=== PATIENT | female | born 1960 | race Caucasian/White ===

== ENCOUNTER 2023-11-07 10:41 | Inpatient (IN) | payer OTHER, SELFPAY ==
[2023-11-01 09:43] VITALS: BMI 21.1
[2023-11-07] VITALS (17 sets, daily range): BP systolic 69–115; BP diastolic 34–67; PULSE 69–94; RESP 11–19; TEMP 36.1–36.7; O2SAT 92–100; BMI 21.1
[2023-11-07] MEDS: LACTATED RINGERS 1,000 ML 84 ML IV ×4 (11:41→18:35)
--- NOTE | 2023-11-07 13:00 | PM.PREOP ---
Pre-operative Note Interval Note History & Physical reviewed/Exam performed by Physician: Yes Changes to H&P: No
[2023-11-07] MEDS: CEFAZOLIN 2 GM/100 ML PREMIX 100 ML IV ×2 (13:49→20:32)
[2023-11-07] MEDS: ACETAMINOPHEN IV 1,000 MG/100 ML VIAL 400 MG IV (13:55)
--- NOTE | 2023-11-07 14:07 | SUR.OPER ---
Prone on spine table, head in foam head support, padded chest and pelvic supports, gel pad at knees, lower legs supported by pillows; nipples, genitalia and toes free of pressure, arms secured on foam padded arm boards at <90 degrees abduction. Tape over blanket at thigh secured to table.
[2023-11-07] MEDS: BUPIVACAINE 0.25% (PF) 60 ML, EPINEPHrine 0.15 MG INJ (14:11)
[2023-11-07] MEDS: BUPIVACAINE LIPOSOME 266 MG/20 ML VIAL INJ (14:12)
--- NOTE | 2023-11-07 17:29 | DI.RAD.S_ITS ---
PROCEDURE: XR LUMBAR SPINE 2-3V INDICATIONS: L4-5, L5-S1 TLIF ROWBOT TECHNIQUE: 4 intraoperative views of the lumbar spine were acquired. COMPARISON: [facility] Outside Film, CT, CT LUMBAR SPINE WITHOUT CONTRAST, 10/26/2023, 9:05. FINDINGS: L4-S1 pedicle screw fixation with intervertebral body spacers. Hardware projects in the expected location. IMPRESSION: Intraoperative guidance provided. Dictated by: Quinten Chen M.D. on 11/07/2023 at 18:27 Approved by: Quinten Chen M.D. on 11/07/2023 at 18:28
--- NOTE | 2023-11-07 17:37 | P.OP_ITS ---
Operative Date/Time/Diagnoses Date of procedure: 11/07/23 Time of procedure: 13:45 Pre-op diagnosis: 1. L4-5, L5-S1 foramen stenosis 2. L5-S1 anterolisthesis 3. Lumbar central stenosis Post-op diagnosis: same Procedure & Clinicians Procedure: 1. L4-5, L5-S1 Postero-lateral and posterior interbody fusion 2. L4-5, L5-S1 interbody cage placement. 3. L4-5, L5-S1 decompressive laminectomy with bilateral facetecomies 4. L4-5, L5-S1 Posterior segmental instrumentation 5. [place] of bone marrow from iliac crest 6. Utilization of microsurgical technique and operating microscope 7. Utilization of robotic assisted navigation Same procedure as scheduled: Yes Indications: Patient has been having chronic back pain and worsening lumbar radiculopathy, right worse than left that started after a injury while she was working. Patient's MRI shows significant foraminal stenosis with anterolisthesis at L4-5 L5-S1 correlating with her symptoms. Patient failed multiple conservative management with worsening pain weakness and numbness in her lower extremity. Patient has been having difficulty performing activity of daily living. After discussing risks benefits of treatment options, patient elected proceed with surgery. Surgeon: Ancelmo Cabrera Medicine Assistant: La Gomez Click Yes if Unassisted: No Anesthesia Type: General Operative Notes Closure Type: primary Prosthetic devices, grafts, tissues, transplants, or devices: Globus CREO MIS screws, Rise cages Applied: catheter Estimated Blood Loss (mL): 350 Blood products transfused: none Procedure in detail: Patient was seen in the preoperative area. Risks and benefits of the surgery was discussed with the patient. Informed consent was obtained from the patient and placed in the chart. Surgical site was marked. Patient was taken to the operative room. General anesthesia was administered. Prophylactic antibiotic was given to the patient less than 30 min before the incision was made. Patient was placed into a prone position on the Harsh table. Patient's back was then prepped and draped in the sterile fashion. Time-out was performed at this time. After patient was prepped and draped, patient's PSIS was palpated and marked bilaterally. Small 1 cm incision was made over the PSIS for placement of the reference probes. Two trocar was placed into the PSIS 1 on each side. The reference probe was attached to the trocar of the reference apparatus. At this time the C-arm imaging was used to confirm AP and lateral of L4-L5, L5- S1 vertebrae and merged the C-arm imaging using the rag & bone robotic navigation system with the CT of the lumbar spine. After successful merging was completed and confirmed, skin marker was used to shine out the skin incision using the rag & bone robotic arm. Bilateral incision was made at this time. Pre templated trajectory was used and guided using the rag & bone robotic navigation system for bilateral L4, L5, S1 pedicle screw placement. This was done by using the robotic arm to guide the high-speed bur to make a cortical entry point. Next a drill was placed also using the robotic arm and guided using the navigation system drilling partially through bilateral L4, L5 and S1 pedicles. Next L4, L5, S1 pedicle screws it was pre templated and measured was placed onto the power milk pickup truck driver and inserted into the pedicles bilaterally. After all 6 screws were placed C-arm imaging was taken of both AP and lateral to confirm the placement. Excellent placement of the screws were confirmed and a matched precisely with the pre planned screw placement using the navigation system. MARs retractor was inserted using ParentPlusivation guidence. Globus MARS retractors was placed inside the incision and docked onto the L4 and L5 lamina. Using microsurgical technique and operating microscope, a L4, L5 laminectomy and L4-5, L5-S1 facetectomy was performed using a Kerrison rongeur. The laminectomy and facetectomy was performed in order to decompress patient's cauda equina as well as the nerve roots exiting at the L4-5, L5-S1 level. Patient was found have severe lateral recess and neural foramen stenosis which was fully decompressed after the laminectomy facetectomy. More than 75% of the facets were removed during the process of decompression rendering L4-5, L5-S1 level grossly unstable and required a fusion procedure at the same time. The disc space at L4-5, L5-S1 was identified, and a total diskectomy was performed at L4-5, L5-S1 level. The endplates were decorticated using a rasp and shaver. The total diskectomy and decortication was performed at L4-5, L5-S1 level in order to to accomplish a L4- 5, L5-S1 fusion. The local bone from the laminectomy and facetectomy was saved for local bone grafting. After the total diskectomy and decortication was completed, Viacel bone graft material was combined with local bone that was harvested earlier. At this time, a separate skin is incision was made over the iliac crest. A Jamshidi needle was inserted into the iliac crest through a separate skin incision. 5 cc of bone marrow aspiration was obtained through the separate skin incision using a Jamshidi needle from the iliac crest. The bone marrow aspiration was combined with local bone and the Viacel bone grafting material. The bone grafting material was placed into the L4-5, L5-S1 interbody space along with a expandable cage. The cage was expanded to its maximum height using the torque limiting screwdriver. The disc preparation as well as the cage insertion were also performed under navigation guidance. After the cage was placed, AP and lateral C-arm imaging was taken to confirm placement of the cage and excellent position was confirmed. Globus MARS retractor was inserted and docked onto the L4-5, L5-S1 posterolateral gutter on the right side. Using the power drill, posterior- lateral decortication was performed at L4-5, L5-S1 level until bleeding cortical bone was identified. The remaining bone grafting material was placed into the L4-5, L5-S1 posterior lateral gutter he order to accomplish posterolateral fusion at the L4-5, L5-S1 level. At this time the tulips were attached to the L4, L5, S1 pedicle screw shanks. After measuring the length of the rods, they were inserted into the tulips of the pedicle screws and locked in place using locking caps and torque limiting screwdriver bilaterally. Total 6 caps and 2 titanium rods was used in order to complete the posterior instrumentation construct. After all the hardware was placed, and confirmed with AP and lateral C-arm imaging, the wound was then irrigated with sterile normal saline and packed with Ray-Jacque gauze for 3 min to accomplish hemostasis. After the gauze was removed the deep fascia was closed with #1 Vicryl suture. The subcutaneous layer was closed with 2-0 Vicryl. The skin was closed with skin adán. Patient tolerated the procedure well. There were no complications. Neuro monitoring system was used to monitor patient's neurologic status throughout entire procedure. There was no disturbance of the neural monitoring signals throughout the case. The Operation could not have been safely performed without compromising the technical result or length of the procedure, without the assistance of a skilled regional vice president surgical sales. The regional vice president surgical sales was medically necessary for proper positioning, retraction and manipulation of instruments, proper exposure, surgical preparation, and manipulation of tissue. Complications: none Post-operative Plan for aftercare: Admit to inpatient hospital
--- NOTE | 2023-11-07 18:08 | SUR.PHASEI ---
Dr Garcia at bedside. 500ml bolus for BP
[2023-11-07] MEDS: HYDROMORPHONE 1 MG INJ IV ×2 (18:16→18:22)
[2023-11-07] MEDS: hydrOXYzine 50 MG/ML INJ IM (18:28)
--- NOTE | 2023-11-07 18:35 | SUR.PHASEI ---
DR Garcia at bedside. Approx 30cc urine output. BP 86/40. Will give 500ml LR. Pt now awake, alert, oriented.
[2023-11-07] MEDS: OXYCODONE IR 5 MG TABLET PO ×2 (18:40→19:08)
[2023-11-07] MEDS: ALBUMIN HUMAN 12.5 GM/50 ML VIAL IV (18:51)
--- NOTE | 2023-11-07 19:38 | SUR.PHASEI ---
Pt transferred to room 215 in bed by this RN. SBAR report and bedside handoff to Nancy RODRIGUEZ. Pt belongings bag with in room. Urine clearing up.
[2023-11-07] MEDS: SENNOSIDES 8.6 MG TABLET 17.2 MG PO (20:31)
[2023-11-07] MEDS: DOCUSATE 100 MG CAPSULE PO (20:31)
[2023-11-07] MEDS: ACETAMINOPHEN 325 MG TABLET 650 MG PO (20:31)
[2023-11-07] MEDS: OXYCODONE IR 10 MG TABLET PO (20:31)
[2023-11-07] MEDS: GABAPENTIN 100 MG CAPSULE PO (20:31)
[2023-11-07] MEDS: LACTATED RINGERS 1,000 ML 125 ML IV (23:26)
[2023-11-08] MEDS: CEFAZOLIN 2 GM/100 ML PREMIX 100 ML IV (02:48)
[2023-11-08] MEDS: OXYCODONE IR 10 MG TABLET PO ×2 (05:22→07:55)
[2023-11-08 05:50] VITALS: BP 93/49; PULSE 70; RESP 19; TEMP 36.6; O2SAT 95
[2023-11-08 05:59] LABS: Hematocrit 26.6 % (36-46)
--- NOTE | 2023-11-08 07:13 | PM.PNPO.1 ---
Subjective Subjective Date Patient Seen: 11/08/23 Time Patient Seen: 07:18 Interval history: Pt lying in bed w/ spouse at bedside. C/o back pain, denies leg pain. No h/o prescription pain medication use prior to surgery, tolerating oxycodone without difficulty. Has not been OOB yet. Exam Vital Signs (past 8 hours): - 11/07/23 23:30 11/08/23 05:50 Temperature 97.8 F 97.9 F Pulse Rate 78 70 Respiratory Rate 19 19 Blood Pressure 109/46 L 93/49 L Pulse Oximetry 95 95 Oxygen Flow Rate 0 0 Oxygen Delivery Method Room Air Oxygen Flow Rate 0 Narrative Exam Narrative: 4/5 strength in hip flexors, quadriceps, hamstrings; 5/5 DF, PF, EHL. Sensation to light touch intact in BLE, calves soft and compressible. Objective Labs 11/08/23 05:20 Labs: Laboratory Results - last 24 hr 11/08/23 05:20 Hgb 9.0 L Hct 26.6 L PFSH Medical History (Updated 11/08/23 @ 07:23 by La Gomez PA-C) Anxiety Heart murmur Preglaucoma of left eye Sciatica Scoliosis Spondylolisthesis of lumbar region Spinal stenosis, lumbar region, with neurogenic claudication Surgical History (Updated 11/08/23 @ 07:14 by La Gomez PA-C) Hx of breast surgery (2009) Hx of tubal ligation (09/1987) H/O: hysterectomy (2010) Social History household members: spouse Smoking Status: Never smoker alcohol intake: current Assessment & Plan Post-op Assessment and plan (1) S/P lumbar fusion: Assessment and Plan narrative: SCDs for VTE prophylaxis; these should be on and functioning whenever pt is in bed. Remove villarreal catheter today. Work w/ PT today in anticipation of d/c home w/ spouse tomorrow. (2) Acute postoperative anemia due to expected blood loss: Assessment and Plan narrative: Preop H/H 13.5/40.9. BP low, HR normal. Pt currently asymptomatic, but has not been OOB yet. No indication for transfusion at this time, but will continue to monitor VSS and U/O, recheck H/H tomorrow to ensure it has stabilized. (3) Hypotension after procedure: Assessment and Plan narrative: Likely d/t procedural blood loss. In review of pts office notes, her BP is typically 120s/60-70s. She is still positive > 4L since surgery, so fluid bolus is not indicated at this time. Will continue monitor. Postoperative Procedures: Procedures Operation Date: 11/07/23 12:15 Actual Procedure Side Surgeon p L4-5, L5-S1 TLIF with posterior instrumentation- robot Ancelmo Cabrera MD Postoperative day: 1 Quality VTE Deep Vein Thrombosis/Pulmonary Embolism Present on Admission: No
[2023-11-08] MEDS: ACETAMINOPHEN 325 MG TABLET 650 MG PO ×2 (07:54→19:36)
[2023-11-08 08:38] VITALS: BP 94/43; PULSE 73; RESP 16; TEMP 36.5; O2SAT 96
--- NOTE | 2023-11-08 09:20 | PT.IIE ---
Current Diagnoses Acute posthemorrhagic anemia (11/07/23) Postprocedural hypotension (11/07/23) Spondylolisthesis, lumbar region (11/07/23) Spinal stenosis, lumbar region with neurogenic claudication (11/07/23) Arthrodesis status (11/07/23) Surgery Performed Operation Date: 11/07/23 12:15 Actual Procedures p L4-5, L5-S1 TLIF with posterior instrumentation- robot - Ancelmo Cabrera MD Surgical History (Last Updated 11/01/23 @ 10:11 by Radha Brown RN) H/O: hysterectomy (2010) Hx of breast surgery (2009) Hx of tubal ligation (09/1987) Medical History (Last Updated 11/01/23 @ 10:11 by Radha Brown RN) Anxiety Heart murmur Preglaucoma of left eye Sciatica Scoliosis Spinal stenosis, lumbar region, with neurogenic claudication Spondylolisthesis of lumbar region Physical Therapy Inpatient Evaluation/Re-Eval M1 PT/OT-IP Prior Functional Status Start: 11/08/23 10:16 Freq: NEEDED Status: Active Protocol: Document 11/08/23 09:20 AB (Rec: 11/08/23 10:25 AB [id number]) Medical Review Prior Functional Status Medical History Reviewed Yes Communication able to make needs known Mobility and Gait pt stated that she was independent with all mobilities and ambulation without AD Social History Household Members spouse Living Arrangements Mobile home Number of Stairs To Enter/Railing? 4 steps L rail ascending Home Environment Standard Height Toilet,Tub/ Shower Home Equipment Front Wheel Walker Additional Social History Comment pt has an adjustable bed M2 PT-IP Current Condition Start: 11/08/23 10:16 Freq: NEEDED Status: Active Protocol: Document 11/08/23 09:20 AB (Rec: 11/08/23 10:25 AB [id number]) Physical Therapy Current Condition Current Condition Evaluation Date 11/08/23 Treatment Diagnosis s/p L4-5, L5S1 TLIF; difficulty in walking Onset Date 11/07/23 M3 PT-IP Subjective Start: 11/08/23 10:16 Freq: NEEDED Status: Active Protocol: Document 11/08/23 09:20 AB (Rec: 11/08/23 10:25 AB [id number]) Subjective Physical Therapy Visit Type Type Initial Evaluation Visit Start Time 09:20 Visit Stop Time 10:00 Number of BOARD CERTIFIED ORTHODONTIST Visits 40 Physical Therapy Visit Comments Patient Comments agreeable to do PT Therapy Pain Assessment Pain When Pain Assessed At Rest Pain Present Pain Present Pain Reported Location Lower Back Intensity 5 Scale Used Numeric (0 - 10) Pain Management Techniques Distraction,Modification of Treatment,Re-positioning, Timing of Activity with Medications M4 PT-IP Mobility and Gait Start: 11/08/23 10:16 Freq: NEEDED Status: Active Protocol: Document 11/08/23 09:20 AB (Rec: 11/08/23 10:25 AB [id number]) PT-Bed Mobility Assessment Rolling Type of Rolling Log Rolling Level of Assist Maximal Assistance Supine to Sit Supine to Sit Maximum Assistance,1 Person Assistance Sit to Supine Sit to Supine Moderate Assistance,1 Person Assistance PT-Transfer Assessment Comments Mobility Comments pt supine in bed and spouse in room. obtained PLOF and home set up from pt. post-op folder provided and reviewed contents. educated pt and spouse regarding back precautions and log roll bed mobility. BP in supine: 98/42. pt completed log roll supine to sit max A and max cues. pt able to sit on EOB SBA. c/o dizziness. BP in sittin/ 35. informed nurse. pt stated that dizziness is stable. checked BP again after ~ 2 min : 79/27. Assisted pt back to bed. completed sit to supine mod A and max cues. BP: 85/36 . positioned pt in bed in slight trendelenburg position. pt stated that she feels better. BP: 95/41. reposition pt supine in bed. call light and table placed within reach . nurse aware of pt's BP. PT-Balance Assessment Sitting Balance and Reactions Static Sitting Balance Ability Good Dynamic Sitting Balance Ability Fair M5 PT-IP Objective Assessments Start: 11/08/23 10:16 Freq: NEEDED Status: Active Protocol: Document 11/08/23 09:20 AB (Rec: 11/08/23 10:25 AB [id number]) Orientation Orientation/Cognition Level of Alertness Alert Orientation Name,Place,Situation Language Function Ability No Deficits Noted Safety Awareness Decreased Safety Awareness Memory Description No Deficits Noted Gross Range of Motion Lower Extremity ROM Assessment Within Functional Limits Strength Lower Extremity Strength Hip 4-/5 Knee 4-/5 Sensation Assessment Sensation Gross Sensation WNL Muscle Tone Muscle Tone WNL Yes M6 PT-IP Treatment Start: 11/08/23 10:16 Freq: NEEDED Status: Active Protocol: Document 11/08/23 09:20 AB (Rec: 11/08/23 10:25 AB [id number]) Physical Therapy Treatment Education Education Provided Precautions,Weight Bearing Status,Post-Op Packet,Safety M7 PT-IP Assessment and Plan Start: 11/08/23 10:16 Freq: NEEDED Status: Active Protocol: Document 11/08/23 09:20 AB (Rec: 11/08/23 10:25 AB [id number]) PT Summary Assessment and Plan Potential Rehabilitation Potential Fair Status of Condition at Evaluation Unstable Summary Impairments Pain,ROM,Strength,Balance, Coordination,Sensation,Tone, Cognition,Bed Mobility, Transfers,Gait,Activity Tolerance Assessment Summary pt is a 62y/o F s/p L4-5,L5S1 TLIF POD 1. pt unable to tolerate much activity this morning with decrease in BP in sitting to 79/27 limiting mobility. pt requiring mod to max A with bed mobility and unable to transfer or ambulate this morning due to decrease in BP. will continue to assess progress. pt plans to go home with spouse to assist her and will conduct caregiver training when appropriate as well as stair climbing training. Goals Bed Mobility Goal Independent Transfer Goal Independent,Front Wheeled Walker Gait Goal Independent,Front Wheel Walker Gait Distance 300 Other Goals up/down 4 steps L rail ascending SBA Days to Meet Goals 10 Frequency of Treatment Frequency Of Treatment Twice a Day Treatment Plan Physical Therapy Treatment Plan Bed Mobility Training,Transfer Training,Gait Training, Therapeutic Exercise,Balance Retraining,Post Op Education, Discharge Planning,Hot or Cold Pack,Neuromuscular Re-ed, Coordination Retraining,Manual Therapy Precautions Lumbar Precautions Log Roll,No Twisting,Limit Bending,Lifting Restriction of 10 lbs,Gait Belt above Incisional Area Recommendations To Nursing Amount of Assist Needed PT/OT Assist Only Discharge Recommendations PT Discharge Recommendations Home with 24/01 Assist Available Transportation Needs at Discharge Private Vehicle,Wheelchair/ Cabulance
[2023-11-08] MEDS: DOCUSATE 100 MG CAPSULE PO ×2 (09:45→20:07)
[2023-11-08] MEDS: OXYCODONE IR 5 MG TABLET PO ×2 (12:58→19:37)
--- NOTE | 2023-11-08 13:03 | PC.NURSE ---
Patient is A&OX4, VSS, afebrile on RA. IVF saline locked this a.m. and patient taking adequate po this a.m. Tolerated breakfast well. PT at bedside working with patient who states she typically has baseline low blood pressure. Upon sitting she is orthostatic 80's/30's and then upon recheck 79/27. She is dizzy at this time HR WNL. She is assisted back to lying down and BP returns to 95/41. MD notified and received orders to monitor, and offer oxycodone 5mg q 3 hr prn instead of 10 mg. Raymond catheter dc'd at 0745 and patient voided at 1300. Continuous monitoring.
--- NOTE | 2023-11-08 13:04 | CM.DANOTE ---
Initial DCP Assessment Visit Note Reviewed EMR and team rounds for pt's medical status and anticipated home d/c needs. Met with pt/spouse at bedside to introduce self and role, pt was found to be resting in bed, somnolent, yet able to express her needs and answer questions congruently. Her RN states that pt is struggling still with recovering from the anesthesia, and has had low blood pressure today, even at rest. Pt will likely d/c home tomorrow w/spouse, if blood pressure stabilizes. Payor: L&I Attending: Dr. Cabrera Pt is a 62 year-old F post-op day 1 from a lumbar fusion surgery. Pt has a PMH of worsening lumbar pain and r-sided pain/weakness that radiates down the leg. This is directly related to an accident that she had while working, when she fell of a ladder onto her r-side on 12/17/21. She has not had lasting relief from conservative treatments such as PT, massage, exercise modification, and anti-inflammatory medications. DCP will continue to follow and assist with any evolving d/c needs/resources. Pt does have a f/u appt. scheduled with Ortho for wound check, and will discuss at that time continued therapy recommendations. Discharge Planning/Care Management CM Discharge Assessment Start: 11/08/23 12:57 Freq: Status: Active Protocol: Document 11/08/23 12:57 DPL (Rec: 11/08/23 13:03 DPL [id number]) Discharge Planning Assessment Assigned Photography Spotter TOMMY Islas Advance Directives? No History Provided By Patient,Significant Other, Medical Record Prior Living Arrangements Mobile home Household Members spouse Type of transporation used prior to Drives own vehicle admit Independent with ADL's Yes Is patient alert and oriented? Yes Community Services used prior to Physical Therapy admission: DME Already Rented / Owned Elevated Toilet Seat,FWW / Walker Patient/Family Preference OP PT Therapy Barriers to Discharge No Discharge Plan Home Referrals Initiated None needed Whiteboard Updated in Patient Room with Yes name and ext. # of Photography Spotter Review Status In Process Please Provide Date Initial DC 11/08/23 Assessment Was Performed Pre-Anesthesia Assessment Start: 11/01/23 09:43 Freq: Status: Active Protocol: Document 11/01/23 09:43 CAB (Rec: 11/01/23 10:25 CAB [id number]) Pre-Anesthesia Assessment Patient Information Reviewed Via Phone Assessment Assessment Completed With Patient Diagnostic Results BMP/CMP,CBC Comment Outside labs scanned. EKG done per pt, not available time of phone assess Primary Care Provider Jessica Seen Specialist in Last 12 Months Yes Specialist Seen Orthopedist Primary Language Yakut Dog Breeder Required No Height 170.18 cm Weight 61.235 kg Body Mass Index (BMI) 21.1 Hearing Ability Normal Visual Assist Glasses Dentition Type Teeth, Natural Present Barriers to Learning None Hx Anesthesia Reactions No Hx Family Anesthesia Reaction Yes: Mom-PONV Hx Malignant Hyperthermia No Hx Blood Transfusions No Anesthesia Review Requested No Beam Builder Helper No alcohol intake current alcohol intake frequency holidays/special occasions only Smoking Status Never smoker Substance Use Type does not use Pain Present Pain Reported Musculoskeletal Symptoms Abnormal Gait,Back Pain, Difficulty Walking,Muscle Weakness,Radiating Pain into Limb History of Falling (Recent or History of Yes ) Comment Fell off ladder at work 2021 Patient is completely paralyzed or No completely immobile Mental Status Oriented to own ability Is patient on oxygen? No Does patient have PEREZ/SOB No Hx Sleep Apnea No Currently Taking a Beta Sher No Can You Climb a Flight of Stairs Without Yes SOB Hx Chest Pain No Hx SOB No Hx Syncope or Dizziness No Anti-Coagulant Therapy No Has a Toll Line Mechanic No Cardiac Testing No Hx Pacemaker/ICD No Pacemaker Rep Required? No Cardiac Clearance Received No Diet Type At Home Regular Dysphagia No Gastrointestinal Symptoms None Urinary Catheter Present No Hx Urinary Self Catheterization No Diabetes No HgbA1C 5.2 Date 10/13/23 Patient No Lactating No Hx Drug Resistant Organism No Presence of External or Internal Medical No Devices Received a COVID vaccine? Yes Received all doses? Yes Marital Status Lives With spouse Current Living Arrangements Mobile home Support System Spouse Does the Patient Have Assistance After Yes Surgery Patient Discharge Plan Description Return Home Comment Pt advised 2 day length of stay per surgeon Feels Safe in Current Environment Yes Been Physically Hurt or Threatened By a No Person in Current Environment Do you have thoughts of harming yourself None or others? Are you currently considering suicide? No Do you have a plan to hurt yourself or No Plan others? Do You Have Any Spiritual Beliefs That No May Affect Your HC Choices? Do You Have Any Cultural Practices That No May Affect Your HC Choices? Who Can We Speak to About Patient's Care Family, friends Identifying Code for Release of Patient Declines to issue Information Health Care Proxy/Next of Kin Abhishek () Health Care Proxy Emergency Contact Name Abhishek () Emergency Contact Advance Directives? No Power of Die Sinker Apprentice Yes Power of Die Sinker Apprentice Name Abhishek () Power of Die Sinker Apprentice PAC Instructions Durable medical equipment, Medications to take/avoid, Nasal antibiotic,No ETOH/ petroleum product on skin DOS, NPO,Pre-surgical wash,Sturdy shoes/comfortable clothes,Do not bring valuables and remove jewelry
--- NOTE | 2023-11-08 14:14 | PT.IPTN ---
Current Diagnoses Acute posthemorrhagic anemia (11/07/23) Postprocedural hypotension (11/07/23) Spondylolisthesis, lumbar region (11/07/23) Spinal stenosis, lumbar region with neurogenic claudication (11/07/23) Arthrodesis status (11/07/23) Surgery Performed Operation Date: 11/07/23 12:15 Actual Procedures p L4-5, L5-S1 TLIF with posterior instrumentation- robot - Ancelmo Cabrera MD Physical Therapy Treatment Note M2 PT-IP Current Condition Start: 11/08/23 10:16 Freq: NEEDED Status: Active Protocol: Document 11/08/23 09:20 AB (Rec: 11/08/23 10:25 AB [id number]) Physical Therapy Current Condition Current Condition Evaluation Date 11/08/23 Treatment Diagnosis s/p L4-5, L5S1 TLIF; difficulty in walking Onset Date 11/07/23 M3 PT-IP Subjective Start: 11/08/23 10:16 Freq: NEEDED Status: Active Protocol: Document 11/08/23 14:14 AB (Rec: 11/08/23 16:00 AB [id number]) Subjective Physical Therapy Visit Type Type Treatment Note Visit Start Time 14:14 Visit Stop Time 14:36 Number of INLETTER Visits 0 Physical Therapy Visit Comments Patient Comments agreeable to do PT Therapy Pain Assessment Pain When Pain Assessed At Rest Pain Present Pain Present Pain Reported Location Lower Back Intensity 6 Scale Used Numeric (0 - 10) Pain Management Techniques Distraction,Modification of Treatment,Re-positioning, Timing of Activity with Medications M4 PT-IP Mobility and Gait Start: 11/08/23 10:16 Freq: NEEDED Status: Active Protocol: Document 11/08/23 14:14 AB (Rec: 11/08/23 16:00 AB [id number]) PT-Bed Mobility Assessment Rolling Type of Rolling Log Rolling Level of Assist Maximal Assistance Supine to Sit Supine to Sit Moderate Assistance,1 Person Assistance Sit to Supine Sit to Supine Minimal Assistance,1 Person Assistance PT-Transfer Assessment Comments Mobility Comments pt supine in bed and requesting to use the toilet. pt agreeable to do PT. BP in supine: 104/46. pt completed log roll supine to sit mod to max A and max cues. able to sit on EOB SBA. initial BP in sittin/48. pt with c/o dizziness. pt able to sit for ~ 2 min and BP checked: 85 /57. assisted pt to supine log roll min A for LE elevation and max cues provided. positioned pt in bed . call light and table placed within reach. M5 PT-IP Objective Assessments Start: 11/08/23 10:16 Freq: NEEDED Status: Active Protocol: Document 11/08/23 09:20 AB (Rec: 11/08/23 10:25 AB [id number]) Orientation Orientation/Cognition Level of Alertness Alert Orientation Name,Place,Situation Language Function Ability No Deficits Noted Safety Awareness Decreased Safety Awareness Memory Description No Deficits Noted Gross Range of Motion Lower Extremity ROM Assessment Within Functional Limits Strength Lower Extremity Strength Hip 4-/5 Knee 4-/5 Sensation Assessment Sensation Gross Sensation WNL Muscle Tone Muscle Tone WNL Yes M6 PT-IP Treatment Start: 11/08/23 10:16 Freq: NEEDED Status: Active Protocol: Document 11/08/23 14:14 AB (Rec: 11/08/23 16:00 AB [id number]) Physical Therapy Treatment Education Education Provided Precautions,Safety M7 PT-IP Assessment and Plan Start: 11/08/23 10:16 Freq: NEEDED Status: Active Protocol: Document 11/08/23 14:14 AB (Rec: 11/08/23 16:00 AB [id number]) PT Summary Assessment and Plan Potential Rehabilitation Potential Fair Summary Impairments Pain,ROM,Strength,Balance, Coordination,Sensation,Tone, Cognition,Bed Mobility, Transfers,Gait,Activity Tolerance Progress Towards Goals Slow Progress due to Pain,Slow Progress due to Medical Issues,Slow Progress due to Activity Tolerance,Slow Progress - Other Assessment Summary pt continues to have orthostatic hypotension with BP at 89/39 in sitting . pt unable to tolerate much activity due to orthostatic hypotension. will continue to assess progress. Goals Bed Mobility Goal Independent Transfer Goal Independent,Front Wheeled Walker Gait Goal Independent,Front Wheel Walker Gait Distance 300 Other Goals up/down 4 steps L rail ascending SBA Days to Meet Goals 10 Frequency of Treatment Frequency Of Treatment Twice a Day Treatment Plan Physical Therapy Treatment Plan Bed Mobility Training,Transfer Training,Gait Training, Therapeutic Exercise,Balance Retraining,Post Op Education, Discharge Planning,Hot or Cold Pack,Neuromuscular Re-ed, Coordination Retraining,Manual Therapy Precautions Lumbar Precautions Log Roll,No Twisting,Limit Bending,Lifting Restriction of 10 lbs,Gait Belt above Incisional Area Recommendations To Nursing Amount of Assist Needed PT/OT Assist Only Discharge Recommendations PT Discharge Recommendations Home with 24/7 Assist Available Transportation Needs at Discharge Private Vehicle,Wheelchair/ Cabulance
--- NOTE | 2023-11-08 14:36 | OT.IP.EVAL ---
Current Diagnoses Acute posthemorrhagic anemia (11/07/23) Postprocedural hypotension (11/07/23) Spondylolisthesis, lumbar region (11/07/23) Spinal stenosis, lumbar region with neurogenic claudication (11/07/23) Arthrodesis status (11/07/23) Surgery Performed Operation Date: 11/07/23 12:15 Actual Procedures p L4-5, L5-S1 TLIF with posterior instrumentation- robot - Ancelmo Cabrera MD Past Medical History (Last Updated 11/01/23 @ 10:11 by Radha Brown RN) Anxiety Heart murmur Preglaucoma of left eye Sciatica Scoliosis Spinal stenosis, lumbar region, with neurogenic claudication Spondylolisthesis of lumbar region Surgical History (Last Updated 11/01/23 @ 10:11 by Radha Brown RN) H/O: hysterectomy (2010) Hx of breast surgery (2009) Hx of tubal ligation (09/1987) Occupational Therapy Inpatient Evaluation/Re-Eval M1 PT/OT-IP Prior Functional Status Start: 11/08/23 14:47 Freq: NEEDED Status: Active Protocol: Document 11/08/23 14:47 [facility] (Rec: 11/08/23 14:59 [facility] [id number]) Medical Review Prior Functional Status Medical History Reviewed Yes Communication able to make needs known Mobility and Gait pt stated that she was independent with all mobilities and ambulation without AD Activities of Daily Living and IADL's Pt states able to do ADL needs but unable to do IADL needs due to her pain. Social History Household Members spouse Living Arrangements Mobile home Number of Stairs To Enter/Railing? 4 steps L rail ascending Home Environment Standard Height Toilet,Tub/ Shower Home Equipment Front Wheel Walker Additional Social History Comment pt has an adjustable bed Pt states has a step on the truck in order to get in. M2 OT-IP Current Condition Start: 11/08/23 14:47 Freq: Status: Active Protocol: Document 11/08/23 14:47 [facility] (Rec: 11/08/23 14:59 [facility] [id number]) Occupational Therapy Current Condition Current Condition Evaluation Date 11/08/23 Treatment Diagnosis S/P L4-5, L5-S1 TLIF Diagnosis Onset Date 11/07/23 Post Operative Precautions Lumbar Precautions Log Roll,No Twisting,Limit Bending,Lifting Restriction of 10 lbs,Gait Belt above Incisional Area M3 OT- IP Subjective and Pain Start: 11/08/23 14:47 Freq: Status: Active Protocol: Document 11/08/23 14:47 [facility] (Rec: 11/08/23 14:59 [facility] [id number]) OT- Subjective Occupational Therapy Visit Type Type Initial Evaluation Visit Start Time 14:11 Visit Stop Time 14:36 Occupational Therapy Visit Comments Patient Comments Pt agreed to get up. Patient/Caregiver Goals To go home. OT Pain Assessment Pain When Pain Assessed During Mobility Pain Present Pain Present Pain Reported Location Lower Back Intensity 8 Scale Used Numeric (0 - 10) M4 OT- IP ADL's Start: 11/08/23 14:47 Freq: Status: Active Protocol: Document 11/08/23 14:47 [facility] (Rec: 11/08/23 14:59 [facility] [id number]) OT [id number] General Evaluation Self-Feeding Ability Independent OT ADL-Grooming Comments OT Grooming Comments Pt states did earlier. OT ADL-Oral Care Comments Oral Care Comments Educated best to spit into a cup or hinge at her hips when during oral care need at sink. OT ADL-Dressing General Eval Lower Body Dressing Ability Maximum Assistance Comments OT Dressing Comments Initiated education of LB dressing equipment. OT ADL-Toileting Comments OT Toileting Comments Use of bed mathur at this time due to low BP. Suggested to get a BSC for home use. Suggested use of pads at night if needed so not having to galvez to the bathroom. OT ADL-Bathing Comments OT Bathing Comments Suggested to get a shower chair for home use. M5 OT- IP IADL's Start: 11/08/23 14:47 Freq: Status: Active Protocol: Document 11/08/23 14:47 [facility] (Rec: 11/08/23 14:59 [facility] [id number]) OT-Instrumental Activities of Daily Living Deficits IADL Deficits Identified Deficits Home Safety Awareness Awareness of Need for Assistance at Home Good Awareness Ability to Problem Solve Emergency Able to Problem Solve Situations Meal Preparation Meal Preparation Caregiver Provides Assist Core Winding Operator Core Winding Operator Caregiver Provides Assist M6 OT- IP Functional Cognition Start: 11/08/23 14:47 Freq: Status: Active Protocol: Document 11/08/23 14:47 [facility] (Rec: 11/08/23 14:59 [facility] [id number]) Cognitive Factors Limiting Selfcare Function Cognitive Ability Level of Alertness Alert Patient Orientation Name,Age,Birthday,Month,Date, Year,Day of Week,Place, Situation Attention Span Ability Capable of Focused Attention, Capable of Sustained Attention Ability to Follow Commands Able to Follow One Step Commands Memory Description No Deficits Noted Safety Awareness Decreased Ability to Apply Precautions Cognitive Comments Cognitive Assessment Comments Pt needing initial education for back precautions as per pt was too groggy this morning to recall. Pt still needing cues for safety and hand placement for log rolling needs. OT- Vision and Hearing OT- Hearing Assessment OT- Hearing Assessment WFL OT- Vision Assessment Visual Acuity Glasses For Reading M7 OT- IP Mobility and Balance Start: 11/08/23 14:47 Freq: Status: Active Protocol: Document 11/08/23 14:47 [facility] (Rec: 11/08/23 14:59 [facility] [id number]) OT- Bed Mobility Assessment Supine to Sit Supine to Sit Assist Minimal Assistance Sit to Supine Sit to Supine Assist Minimal Assistance Scooting Scooting to Edge of Bed Standby Assistance OT-Transfer Assessment Comments Mobility Comments BP supine 97/36, sitting 105/ 48 and 89/36 and complaining of being dizzy, 95/38 in supine- nursing notified. OT- Balance Assessment Sitting Balance and Reactions Static Sitting Balance Ability Good M8 OT- IP Objective Assessments Start: 11/08/23 14:47 Freq: Status: Active Protocol: Document 11/08/23 14:47 [facility] (Rec: 11/08/23 14:59 [facility] [id number]) OT Gross Range of Motion Upper Extremity Range of Motion Assessment Within Functional Limits M9 OT- IP Assessment and Plan Start: 11/08/23 14:47 Freq: Status: Active Protocol: Document 11/08/23 14:47 [facility] (Rec: 11/08/23 14:59 [facility] [id number]) OT Summary Assessment and Plan Potential Rehabilitation Potential Excellent Analytic Complexity at Evaluation Low Summary OT Impairments Pain,Balance,Functional Mobility,Dressing,Toileting, Bathing,Toilet Transfers, Shower Transfers Progress Towards Goals Slow Progress due to Pain,Slow Progress due to Medical Issues Assessment Summary Pt low complexity and main barriers are steps, having hypotension and not able to try standing at this time. Pt has a supportive to assist with her needs. Pt to go home with assist when medically stable. Goals Grooming Goal Independent Dressing Goal Minimal Assistance Toileting Goal Independent Bathing Goal Standby Assistance Toilet Transfer Goal Independent Shower Transfer Goal Independent Patient/Caregiver Education Goal Demonstrate Post-Op Precautions,Caregiver Independent Assisting Patient Days to Meet Goals 10 Frequency of Treatment Frequency Of Treatment Once a Day Treatment Plan OT Treatment Plan ADL Training,Functional Mobility,Patient/Family Education,Discharge Planning Other Treatment Recommendations and Next LB dressing equipment, Treatment Focus satnding ADL's pending BP Discharge Recommendations OT Discharge Recommendations Home with 24/7 Assist Available Home Equipment Needs BSC, shower chair Transportation Needs at Discharge Private Vehicle
[2023-11-08 15:10] VITALS: BP 95/41; PULSE 84; RESP 16; TEMP 36.6; O2SAT 98
[2023-11-08] MEDS: SODIUM CHLORIDE 0.9% 500 ML 1000 ML IV (15:13)
[2023-11-08 17:25] VITALS: BP 107/40
[2023-11-08] MEDS: SENNOSIDES 8.6 MG TABLET 17.2 MG PO (20:07)
[2023-11-08] MEDS: GABAPENTIN 100 MG CAPSULE PO (20:08)
[2023-11-08] MEDS: BIMATOPROST 1 EACH EYE-LEFT (20:09)
[2023-11-08 20:51] VITALS: BP 118/45; PULSE 83; RESP 16; TEMP 37.7; O2SAT 96
[2023-11-09] VITALS (7 sets, daily range): BP systolic 93–107; BP diastolic 36–46; PULSE 76–90; RESP 16–19; TEMP 36.6–37.2; O2SAT 95–100
[2023-11-09] MEDS: ACETAMINOPHEN 325 MG TABLET 650 MG PO ×3 (02:06→17:18)
[2023-11-09] MEDS: OXYCODONE IR 5 MG TABLET PO ×4 (02:06→17:18)
[2023-11-09 06:14] LABS: Hemoglobin 9.3 g/dL (12.0-16.0)
--- NOTE | 2023-11-09 07:16 | PM.DS.1 ---
History of Present Illness History of Present Illness Date Patient Seen: 11/09/23 Time Patient Seen: 07:16 Chief complaint: Translam Intrbody Fus./Laminotomy -Robot Narrative: Operative Date/Time/Diagnoses Date of procedure: 11/07/23 Time of procedure: 13:45 Pre-op diagnosis: 1. L4-5, L5-S1 foramen stenosis 2. L5-S1 anterolisthesis 3. Lumbar central stenosis Post-op diagnosis: same Procedure & Clinicians Procedure: 1. L4-5, L5-S1 Postero-lateral and posterior interbody fusion 2. L4-5, L5-S1 interbody cage placement. 3. L4-5, L5-S1 decompressive laminectomy with bilateral facetecomies 4. L4-5, L5-S1 Posterior segmental instrumentation 5. [place] of bone marrow from iliac crest 6. Utilization of microsurgical technique and operating microscope 7. Utilization of robotic assisted navigation Same procedure as scheduled: Yes Indications: Patient has been having chronic back pain and worsening lumbar radiculopathy, right worse than left that started after a injury while she was working. Patient's MRI shows significant foraminal stenosis with anterolisthesis at L4-5 L5-S1 correlating with her symptoms. Patient failed multiple conservative management with worsening pain weakness and numbness in her lower extremity. Patient has been having difficulty performing activity of daily living. After discussing risks benefits of treatment options, patient elected proceed with surgery. Surgeon: Ancelmo Cabrera Rotary Bar Operator: La Gomez Click Yes if Unassisted: No Anesthesia Type: General Operative Notes Closure Type: primary Prosthetic devices, grafts, tissues, transplants, or devices: Globus CREO MIS screws, Rise cages Applied: catheter Estimated Blood Loss (mL): 350 Blood products transfused: none Discharge Providers Provider Date of admission: 11/07/23 10:41 Discharge Date: 11/09/23 Consults: 11/07/23 19:23 Consult to Occupational Therapy Evaluate & Treat Comment: Physician Instructions: Evaluate and treat Consult to Physical Therapy Evaluate & Treat Comment: Physician Instructions: Evaluate and Treat Discharge provider: La Gomez PA-C Summary Hospital Course Discharge Diagnosis: L4-5, L5-S1 foramen stenosis, L5-S1 anterolisthesis, Lumbar central stenosis; s/p L4-5, L5-S1 fusion Hospital Course: Ms Pang's hospital course was remarkable for postoperative anemia and hypotension. On the morning of POD# 2, her blood pressure had returned to preop levels and she remained asymptomatic. Her H/H had improved. She was feeling well and wanted to go home. She was eating and voiding without difficulty and her pain was well-controlled with oral medication. She c/o back pain, denied leg symptoms. Exam Vital Signs (past 8 hours): - 11/09/23 01:21 11/09/23 06:33 Temperature 98.7 F 98 F Pulse Rate 90 Respiratory Rate 19 Blood Pressure 100/42 L Pulse Oximetry 95 Oxygen Flow Rate 0 Oxygen Delivery Method Room Air Oxygen Flow Rate 0 Narrative Exam Narrative: 5/5 strength in hip flexors, quadriceps, hamstrings, DF, PF, EHL bilaterally. Sensation to light touch intact in BLE. Calves soft, compressible, nontender. Low back dressing placed intraoperatively is CDI. Objective Labs 11/09/23 05:33 Labs: Laboratory Results - last 24 hr 11/09/23 05:33 Hgb 9.3 L Hct 27.0 L PFSH Medical History (Updated 11/08/23 @ 07:23 by La Gomez PA-C) Anxiety Heart murmur Preglaucoma of left eye Sciatica Scoliosis Spondylolisthesis of lumbar region Spinal stenosis, lumbar region, with neurogenic claudication Surgical History (Updated 11/08/23 @ 07:14 by La Gomez PA-C) Hx of breast surgery (2009) Hx of tubal ligation (09/1987) H/O: hysterectomy (2010) Social History household members: spouse Smoking Status: Never smoker alcohol intake: current Discharge Assessment & Plan Assessment and Plan Assessment: L4-5, L5-S1 foramen stenosis, L5-S1 anterolisthesis, Lumbar central stenosis; s/p L4-5, L5-S1 fusion Postop anemia d/t expected surgical blood loss Postop hypotension d/t expected surgical blood loss Plan of Treatment: Discharge home after AM PT if PT agrees. Multimodal pain control, f/u in office in 2 weeks as scheduled. Discharge Plan Discharge Plan Patient Disposition: Home Discharge orders & Medications Prescriptions: New docusate sodium 100 mg Capsule 100 mg PO BID PRN (Reason: constipation) Qty: 60 1RF oxycodone 5 mg Tablet 5 mg PO Q4-6H PRN (Reason: Pain, Moderate (4-6)) Qty: 60 0RF Continued acetaminophen 500 mg Tablet 1,000 mg PO Q6H PRN (Reason: Pain) gabapentin 100 mg Capsule 100 mg PO BEDTIME diphenhydramine-acetaminophen [Acetaminophen PM] 25-500 mg Tablet 1 tab PO BEDTIME Lumigan 0.01 % Drops 1 drp EYE-LEFT DAILY Follow up/Referrals: Ancelmo Cabrera MD [Physician] - 11/22/23 11:00 am (Follow up w/ Toan Del Toro PA-C, at [facility] office in [facility] Diet/Activity/Treatments Diet: Diet as Tolerated Activity: No deep bending or twisting at the waist. No lifting more than 10 pounds. Cold/Heat Therapy: Heating pad to low back as needed for pain. Skin/Wound/Dressing Care Report to your healthcare provider any signs of infection, such as:: chills, fever, night sweats, unusual drainage and unusual redness Dressing: May shower. Keep dressing as dry as possible. If dressing becomes wet or dirty, may remove and replace with clean, dry gauze. No bathing or otherwise soaking incisions. Do not apply any creams, lotions, or ointments to incisions. Visit Report/Discharge Packet Instructions: DI for Prescription Opioid Use, DI for Transforaminal Lumbar Interbody Fusion Stand Alone Forms: Patient Portal/API, Stroke Signs & Symptoms, Surgery Discharge Quality VTE Deep Vein Thrombosis/Pulmonary Embolism Present on Admission: No
[2023-11-09] MEDS: DOCUSATE 100 MG CAPSULE PO ×2 (08:44→20:13)
--- NOTE | 2023-11-09 09:40 | CM.DPC ---
DCP Cont. Reviewed EMR and team rounds for status updates. Pt has been medically cleared for home d/c today, her spouse will transport her home. No further DCP needs identified at this time.
--- NOTE | 2023-11-09 10:40 | PT.IPTN ---
Current Diagnoses Acute posthemorrhagic anemia (11/07/23) Postprocedural hypotension (11/07/23) Spondylolisthesis, lumbar region (11/07/23) Spinal stenosis, lumbar region with neurogenic claudication (11/07/23) Arthrodesis status (11/07/23) Surgery Performed Operation Date: 11/07/23 12:15 Actual Procedures p L4-5, L5-S1 TLIF with posterior instrumentation- robot - Ancelmo Cabrera MD Physical Therapy Treatment Note M2 PT-IP Current Condition Start: 11/08/23 10:16 Freq: NEEDED Status: Active Protocol: Document 11/08/23 09:20 AB (Rec: 11/08/23 10:25 AB [id number]) Physical Therapy Current Condition Current Condition Evaluation Date 11/08/23 Treatment Diagnosis s/p L4-5, L5S1 TLIF; difficulty in walking Onset Date 11/07/23 M3 PT-IP Subjective Start: 11/08/23 10:16 Freq: NEEDED Status: Active Protocol: Document 11/09/23 10:40 AB (Rec: 11/09/23 12:36 AB [id number]) Subjective Physical Therapy Visit Type Type Treatment Note Visit Start Time 10:40 Visit Stop Time 11:10 Number of CASH MANAGEMENT ASSOCIATE Visits 0 Physical Therapy Visit Comments Patient Comments agreeable to do PT Therapy Pain Assessment Pain When Pain Assessed At Rest Pain Present Pain Present Pain Reported Location Lower Back Intensity 6 Scale Used Numeric (0 - 10) Pain Management Techniques Apply Cold,Distraction, Modification of Treatment,Re- positioning,Timing of Activity with Medications M4 PT-IP Mobility and Gait Start: 11/08/23 10:16 Freq: NEEDED Status: Active Protocol: Document 11/09/23 10:40 AB (Rec: 11/09/23 12:36 AB [id number]) PT-Transfer Assessment Sit to and From Stand Sit to and from Stand Minimal Assistance,Moderate Assistance,Maximum Assistance, 1 Person Assistance,Use of Upper Extremities Equipment Transfer Assistive Device Gait Belt,Front Wheeled Walker Orthotic/Prosthetic Devices or Brace: Yes Comments Mobility Comments pt sitting up on the chair. pt agreeable to do PT. BP in sittin/43. pt completed sit to stand from the chair max A and max cues. BP checked in standin/37. instructed pt to sit back down . required max A for controlled descent to chair. BP checked in sittin/32. pt rested. BP checked in ~ 2 min: 95/32. pt rested for a few more minutes: 100/38. sit<>stand training. pt educated on sit<>stand techniques. pt completed sit <>stand max A and max cues with first 2 reps and only needing min to mod A on last repetition. BP checked : 84/ 34. postioned pt on the chair . ice pack provided. call light and table placed within reach. BP checked again: 92/ 36 M5 PT-IP Objective Assessments Start: 11/08/23 10:16 Freq: NEEDED Status: Active Protocol: Document 11/08/23 09:20 AB (Rec: 11/08/23 10:25 AB [id number]) Orientation Orientation/Cognition Level of Alertness Alert Orientation Name,Place,Situation Language Function Ability No Deficits Noted Safety Awareness Decreased Safety Awareness Memory Description No Deficits Noted Gross Range of Motion Lower Extremity ROM Assessment Within Functional Limits Strength Lower Extremity Strength Hip 4-/5 Knee 4-/5 Sensation Assessment Sensation Gross Sensation WNL Muscle Tone Muscle Tone WNL Yes M6 PT-IP Treatment Start: 11/08/23 10:16 Freq: NEEDED Status: Active Protocol: Document 11/09/23 10:40 AB (Rec: 11/09/23 12:36 AB [id number]) Physical Therapy Treatment Education Education Provided Precautions,Safety M7 PT-IP Assessment and Plan Start: 11/08/23 10:16 Freq: NEEDED Status: Active Protocol: Document 11/09/23 10:40 AB (Rec: 11/09/23 12:36 AB [id number]) PT Summary Assessment and Plan Potential Rehabilitation Potential Fair Summary Impairments Pain,ROM,Strength,Balance, Coordination,Sensation,Tone, Cognition,Bed Mobility, Transfers,Gait,Activity Tolerance Progress Towards Goals Slow Progress due to Medical Issues,Slow Progress due to Activity Tolerance Assessment Summary pt continue to have orthostatic hypotension with BP decreased to 85/37 in standing limiting pt's activity tolerance. pt requiring mod to max A for sit to stand and unable to ambulate due to decrease in BP . will continue to assess progress. Goals Bed Mobility Goal Independent Transfer Goal Independent,Front Wheeled Walker Gait Goal Independent,Front Wheel Walker Gait Distance 300 Other Goals up/down 4 steps L rail ascending SBA Days to Meet Goals 10 Frequency of Treatment Frequency Of Treatment Twice a Day Treatment Plan Physical Therapy Treatment Plan Bed Mobility Training,Transfer Training,Gait Training, Therapeutic Exercise,Balance Retraining,Post Op Education, Discharge Planning,Hot or Cold Pack,Neuromuscular Re-ed, Coordination Retraining,Manual Therapy Precautions Lumbar Precautions Log Roll,No Twisting,Limit Bending,Lifting Restriction of 10 lbs,Gait Belt above Incisional Area Recommendations To Nursing Amount of Assist Needed PT/OT Assist Only Discharge Recommendations PT Discharge Recommendations Home with 24/01 Assist Available Transportation Needs at Discharge Private Vehicle,Wheelchair/ Cabulance
[2023-11-09] MEDS: SODIUM CHLORIDE 0.9% 1,000 ML 1000 ML IV (11:22)
--- NOTE | 2023-11-09 11:32 | OT.IP.TRT ---
Current Diagnoses Acute posthemorrhagic anemia (11/07/23) Postprocedural hypotension (11/07/23) Spondylolisthesis, lumbar region (11/07/23) Spinal stenosis, lumbar region with neurogenic claudication (11/07/23) Arthrodesis status (11/07/23) Surgery Performed Operation Date: 11/07/23 12:15 Actual Procedures p L4-5, L5-S1 TLIF with posterior instrumentation- robot - Ancelmo Cabrera MD Occupational Therapy Treatment Note M2 OT-IP Current Condition Start: 11/08/23 14:47 Freq: Status: Active Protocol: Document 11/08/23 14:47 [facility] (Rec: 11/08/23 14:59 [facility] [id number]) Occupational Therapy Current Condition Current Condition Evaluation Date 11/08/23 Treatment Diagnosis S/P L4-5, L5-S1 TLIF Diagnosis Onset Date 11/07/23 Post Operative Precautions Lumbar Precautions Log Roll,No Twisting,Limit Bending,Lifting Restriction of 10 lbs,Gait Belt above Incisional Area M3 OT- IP Subjective and Pain Start: 11/08/23 14:47 Freq: Status: Active Protocol: Document 11/09/23 11:35 [facility] (Rec: 11/09/23 11:45 [facility] [id number]) OT- Subjective Occupational Therapy Visit Type Type Treatment Note Visit Start Time 11:08 Visit Stop Time 11:32 Occupational Therapy Visit Comments Patient Comments Pt just completed PT and having low BP but not symptomatic. Patient/Caregiver Goals To go home. OT Pain Assessment Pain When Pain Assessed During Mobility Pain Present Pain Present Pain Reported M4 OT- IP ADL's Start: 11/08/23 14:47 Freq: Status: Active Protocol: Document 11/09/23 11:35 [facility] (Rec: 11/09/23 11:45 [facility] [id number]) OT AAG-Ozni-Hrlzlzr General Evaluation Self-Feeding Ability Independent OT ADL-Grooming General Evaluation Grooming Ability Standby Assistance Comments OT Grooming Comments Pt able to do while seated as not feeling well enough to stand at this time. OT ADL-Oral Care General Eval Oral Care Ability Independent Comments Oral Care Comments Reiterated it standing to do oral care best to hinge at her hips or just spit into a cup. OT ADL-Dressing General Eval Lower Body Dressing Ability Standby Assistance Comments OT Dressing Comments Pt able to practice use of sock aid and supervisor cell efficiency today. Pt just got a supervisor cell efficiency and long handle shoe horn from her son . OT ADL-Toileting Comments OT Toileting Comments Pt's able to get a RTS with handles. Reiterated maybe best to stand and wipe to best follow her back precautions, use of wet one and pads at night if needed. OT ADL-Bathing Comments OT Bathing Comments Went over care of dressing needs while showering. Pt's able to garbage pick up man a shower chair and HHPS. M5 OT- IP IADL's Start: 11/08/23 14:47 Freq: Status: Active Protocol: Document 11/08/23 14:47 [facility] (Rec: 11/08/23 14:59 [facility] [id number]) OT-Instrumental Activities of Daily Living Deficits IADL Deficits Identified Deficits Home Safety Awareness Awareness of Need for Assistance at Home Good Awareness Ability to Problem Solve Emergency Able to Problem Solve Situations Meal Preparation Meal Preparation Caregiver Provides Assist Balance Wheel Screw Hole Driller Balance Wheel Screw Hole Driller Caregiver Provides Assist M6 OT- IP Functional Cognition Start: 11/08/23 14:47 Freq: Status: Active Protocol: Document 11/09/23 11:35 [facility] (Rec: 11/09/23 11:45 [facility] [id number]) Cognitive Factors Limiting Selfcare Function Cognitive Comments Cognitive Assessment Comments Pt much more alert today and able to state and follow her back precautions. M8 OT- IP Objective Assessments Start: 11/08/23 14:47 Freq: Status: Active Protocol: Document 11/08/23 14:47 [facility] (Rec: 11/08/23 14:59 [facility] [id number]) OT Gross Range of Motion Upper Extremity Range of Motion Assessment Within Functional Limits M9 OT- IP Assessment and Plan Start: 11/08/23 14:47 Freq: Status: Active Protocol: Document 11/09/23 11:48 [facility] (Rec: 11/09/23 11:50 [facility] [id number]) OT Summary Assessment and Plan Potential Rehabilitation Potential Excellent Analytic Complexity at Evaluation Low Summary OT Impairments Pain,Balance,Functional Mobility,Dressing,Toileting, Bathing,Toilet Transfers, Shower Transfers Progress Towards Goals Slow Progress due to Medical Issues Assessment Summary Pt low complexity and main barrier are still low BP. Able to go over ADL equipment needs and practiced use of supervisor cell efficiency and sock aid with the pt. Pt to go home when medically stable. Pt's able to get a RTS with handles, shower chair, and HHPS. Goals Grooming Goal Independent Dressing Goal Independent,Long Handled Shoe Horn,Office Manager,Sock Aid Toileting Goal Independent Bathing Goal Standby Assistance Toilet Transfer Goal Independent Shower Transfer Goal Independent Days to Meet Goals 5 Frequency of Treatment Frequency Of Treatment Once a Day Treatment Plan OT Treatment Plan ADL Training,Functional Mobility,Patient/Family Education,Discharge Planning Discharge Recommendations OT Discharge Recommendations Home with 24 Assist Available Transportation Needs at Discharge Private Vehicle
--- NOTE | 2023-11-09 11:45 | OT.IP.TRT ---
Current Diagnoses Acute posthemorrhagic anemia (11/07/23) Postprocedural hypotension (11/07/23) Spondylolisthesis, lumbar region (11/07/23) Spinal stenosis, lumbar region with neurogenic claudication (11/07/23) Arthrodesis status (11/07/23) Surgery Performed Operation Date: 11/07/23 12:15 Actual Procedures p L4-5, L5-S1 TLIF with posterior instrumentation- robot - Ancelmo Cabrera MD Occupational Therapy Treatment Note M2 OT-IP Current Condition Start: 11/08/23 14:47 Freq: Status: Active Protocol: Document 11/08/23 14:47 [facility] (Rec: 11/08/23 14:59 [facility] [id number]) Occupational Therapy Current Condition Current Condition Evaluation Date 11/08/23 Treatment Diagnosis S/P L4-5, L5-S1 TLIF Diagnosis Onset Date 11/07/23 Post Operative Precautions Lumbar Precautions Log Roll,No Twisting,Limit Bending,Lifting Restriction of 10 lbs,Gait Belt above Incisional Area M3 OT- IP Subjective and Pain Start: 11/08/23 14:47 Freq: Status: Active Protocol: Document 11/09/23 11:35 [facility] (Rec: 11/09/23 11:45 [facility] [id number]) OT- Subjective Occupational Therapy Visit Type Type Treatment Note Visit Start Time 11:08 Visit Stop Time 11:32 Occupational Therapy Visit Comments Patient Comments Pt just completed PT and having low BP but not symptomatic. Patient/Caregiver Goals To go home. OT Pain Assessment Pain When Pain Assessed During Mobility Pain Present Pain Present Pain Reported M4 OT- IP ADL's Start: 11/08/23 14:47 Freq: Status: Active Protocol: Document 11/09/23 11:35 [facility] (Rec: 11/09/23 11:45 [facility] [id number]) OT KRK-Gxtb-Fklctom General Evaluation Self-Feeding Ability Independent OT ADL-Grooming General Evaluation Grooming Ability Standby Assistance Comments OT Grooming Comments Pt able to do while seated as too tired to stand at this time. OT ADL-Oral Care General Eval Oral Care Ability Independent Comments Oral Care Comments Reiterated it standing to do oral care best to hinge at her hips or just spit into a cup. OT ADL-Dressing General Eval Lower Body Dressing Ability Standby Assistance Comments OT Dressing Comments Pt able to practice use of sock aid and solder cream maker today. Pt just got a solder cream maker and long handle shoe horn from her son . OT ADL-Toileting Comments OT Toileting Comments Pt's able to get a RTS with handles. Reiterated maybe best to stand and wipe to best follow her back precautions, use of wet one and pads at night if needed. OT ADL-Bathing Comments OT Bathing Comments Went over care of dressing needs while showering. Pt's able to clam picker a shower chair and HHPS. M5 OT- IP IADL's Start: 11/08/23 14:47 Freq: Status: Active Protocol: Document 11/08/23 14:47 [facility] (Rec: 11/08/23 14:59 [facility] [id number]) OT-Instrumental Activities of Daily Living Deficits IADL Deficits Identified Deficits Home Safety Awareness Awareness of Need for Assistance at Home Good Awareness Ability to Problem Solve Emergency Able to Problem Solve Situations Meal Preparation Meal Preparation Caregiver Provides Assist Liner Machine Operator Helper Liner Machine Operator Helper Caregiver Provides Assist M6 OT- IP Functional Cognition Start: 11/08/23 14:47 Freq: Status: Active Protocol: Document 11/09/23 11:35 [facility] (Rec: 11/09/23 11:45 [facility] [id number]) Cognitive Factors Limiting Selfcare Function Cognitive Comments Cognitive Assessment Comments Pt much more alert today and able to state and follow her back precautions. Start: 11/08/23 14:47 Freq: Status: Active Protocol: Document 11/08/23 14:47 [facility] (Rec: 11/08/23 14:59 [facility] [id number]) OT Gross Range of Motion Upper Extremity Range of Motion Assessment Within Functional Limits M9 OT- IP Assessment and Plan Start: 11/08/23 14:47 Freq: Status: Active Protocol: Document 11/08/23 14:47 [facility] (Rec: 11/08/23 14:59 [facility] [id number]) OT Summary Assessment and Plan Potential Rehabilitation Potential Excellent Analytic Complexity at Evaluation Low Summary OT Impairments Pain,Balance,Functional Mobility,Dressing,Toileting, Bathing,Toilet Transfers, Shower Transfers Progress Towards Goals Slow Progress due to Pain,Slow Progress due to Medical Issues Assessment Summary Pt low complexity and main barriers are steps, having hypotension and not able to try standing at this time. Pt has a supportive to assist with her needs. Pt to go home with assist when medically stable. Goals Grooming Goal Independent Dressing Goal Minimal Assistance Toileting Goal Independent Bathing Goal Standby Assistance Toilet Transfer Goal Independent Shower Transfer Goal Independent Patient/Caregiver Education Goal Demonstrate Post-Op Precautions,Caregiver Independent Assisting Patient Days to Meet Goals 5 Frequency of Treatment Frequency Of Treatment Once a Day Treatment Plan OT Treatment Plan ADL Training,Functional Mobility,Patient/Family Education,Discharge Planning Other Treatment Recommendations and Next Treatment Focus Discharge Recommendations OT Discharge Recommendations Home with 24/ Assist Available Home Equipment Needs BSC, shower chair Transportation Needs at Discharge Private Vehicle
--- NOTE | 2023-11-09 16:25 | PT.IPTN ---
Current Diagnoses Acute posthemorrhagic anemia (11/07/23) Postprocedural hypotension (11/07/23) Spondylolisthesis, lumbar region (11/07/23) Spinal stenosis, lumbar region with neurogenic claudication (11/07/23) Arthrodesis status (11/07/23) Surgery Performed Operation Date: 11/07/23 12:15 Actual Procedures p L4-5, L5-S1 TLIF with posterior instrumentation- robot - Ancelmo Cabrera MD Physical Therapy Treatment Note M2 PT-IP Current Condition Start: 11/08/23 10:16 Freq: NEEDED Status: Active Protocol: Document 11/08/23 09:20 AB (Rec: 11/08/23 10:25 AB [id number]) Physical Therapy Current Condition Current Condition Evaluation Date 11/08/23 Treatment Diagnosis s/p L4-5, L5S1 TLIF; difficulty in walking Onset Date 11/07/23 M3 PT-IP Subjective Start: 11/08/23 10:16 Freq: NEEDED Status: Active Protocol: Document 11/09/23 16:25 [facility] (Rec: 11/09/23 17:41 AB [id number]) Subjective Physical Therapy Visit Type Type Treatment Note Visit Start Time 16:25 Visit Stop Time 17:00 Number of APPEALS REFEREE Visits 0 Physical Therapy Visit Comments Patient Comments agreeable to do PT Therapy Pain Assessment Pain When Pain Assessed At Rest Location Lower Back Intensity 6 Scale Used Numeric (0 - 10) Pain Management Techniques Distraction,Modification of Treatment,Re-positioning, Timing of Activity with Medications M4 PT-IP Mobility and Gait Start: 11/08/23 10:16 Freq: NEEDED Status: Active Protocol: Document 11/09/23 16:25 AB (Rec: 11/09/23 17:41 AB [id number]) PT-Bed Mobility Assessment Rolling Level of Assist Maximal Assistance Supine to Sit Supine to Sit Maximum Assistance,1 Person Assistance Sit to Supine Sit to Supine Maximum Assistance,1 Person Assistance PT-Transfer Assessment Sit to and From Stand Sit to and from Stand Maximum Assistance,1 Person Assistance,2 Person Assistance ,Use of Upper Extremities Equipment Transfer Assistive Device Gait Belt,Front Wheeled Walker Orthotic/Prosthetic Devices or Brace: No Comments Mobility Comments pt supine in bed and agreeable to do PT. BP in supine: 106/ 43. pt completed log roll supine to sit max A and max cues. pt required increase time to complete task. BP with initial sittin/40. c/o dizziness. pt tolerate sitting on EOB ~ 2 min and BP checked again: 114/42. pt completed sit to stand max A x 1-2 and max cues requiring 2 attempts to be able to stand upright. c/o dizziness. BP with initial standin/30. pt able to stand for ~ 2 more minutes and BP checked again: 80/28. instructed pt to take side stepping towards HOB max A x1-2 and max cues using fWW and max A for sitting descent . completed log roll sit to supine max A and max cues. positioned pt in bed. call light and table placed within reach. BP supine at end of tx session: 121/35 Gait Assessment Comments Gait Comments max A x 1-2 for side stepping towards HOB using FWW~ 2 steps M5 PT-IP Objective Assessments Start: 11/08/23 10:16 Freq: NEEDED Status: Active Protocol: Document 11/08/23 09:20 AB (Rec: 11/08/23 10:25 AB [id number]) Orientation Orientation/Cognition Level of Alertness Alert Orientation Name,Place,Situation Language Function Ability No Deficits Noted Safety Awareness Decreased Safety Awareness Memory Description No Deficits Noted Gross Range of Motion Lower Extremity ROM Assessment Within Functional Limits Strength Lower Extremity Strength Hip 4-/5 Knee 4-/5 Sensation Assessment Sensation Gross Sensation WNL Muscle Tone Muscle Tone WNL Yes M6 PT-IP Treatment Start: 11/08/23 10:16 Freq: NEEDED Status: Active Protocol: Document 11/09/23 16:25 AB (Rec: 11/09/23 17:41 AB [id number]) Physical Therapy Treatment Education Education Provided Precautions,Safety M7 PT-IP Assessment and Plan Start: 11/08/23 10:16 Freq: NEEDED Status: Active Protocol: Document 11/09/23 16:25 AB (Rec: 11/09/23 17:41 AB [id number]) PT Summary Assessment and Plan Potential Rehabilitation Potential Fair Summary Impairments Pain,ROM,Strength,Balance, Coordination,Sensation,Tone, Cognition,Bed Mobility, Transfers,Gait,Activity Tolerance Progress Towards Goals Slow Progress due to Medical Issues,Slow Progress due to Activity Tolerance Assessment Summary pt continues to have orthostatic hypotension affecting activity tolerance and assistance needed. pt requiring max A for bed mobility and max A x 1-2 for sit to stand. able to take side steps towards HOB ~ 2 ft using FWW max A x 1-2 and max cues. d/c plan depending on progress but currently pt has limitied activity tolerance due to orthostatic hypotension . will continue to assess progress. Goals Bed Mobility Goal Independent Transfer Goal Independent,Front Wheeled Walker Gait Goal Independent,Front Wheel Walker Gait Distance 300 Other Goals up/down 4 steps L rail ascending SBA Days to Meet Goals 10 Frequency of Treatment Frequency Of Treatment Twice a Day Treatment Plan Physical Therapy Treatment Plan Bed Mobility Training,Transfer Training,Gait Training, Therapeutic Exercise,Balance Retraining,Post Op Education, Discharge Planning,Hot or Cold Pack,Neuromuscular Re-ed, Coordination Retraining,Manual Therapy Precautions Lumbar Precautions Log Roll,No Twisting,Limit Bending,Lifting Restriction of 10 lbs,Gait Belt above Incisional Area Recommendations To Nursing Amount of Assist Needed 2 Person Assist Discharge Recommendations PT Discharge Recommendations Home with 24/01 Assist Available,Home Health,SNF Rehab Transportation Needs at Discharge Private Vehicle,Wheelchair/ Cabulance
--- NOTE | 2023-11-09 16:27 | PC.NURSE ---
Patient is A&OX4 on RA. She is still +orthostatic BP while working with PT this a.m. and reports feeling dizzy with standing. PA notified and received an order for 1 L NS IVF. After bolus initially patient was still hypotensive, requesting to lie back in bed. She is assisted to lie back down BP stil 80's /40's. Upon reassessment SBP 107/46 HR 86. PA notified, PT at bedside this afternoon attempting to work with patient for afternoon session.
--- NOTE | 2023-11-09 17:44 | PM.CN ---
History of Present Illness Consult details Date Patient Seen: 11/09/23 Time Patient Seen: 17:45 Chief complaint: Translam Intrbody Fus./Laminotomy -Robot Narrative: This is a 62 year old female, with no significant PMH, POD #2 s/p lumbar fusion by orthopedic surgery. Yesterday patient was orthostatic, given fluids and symptoms were worse this morning. She feels better after additional IV fluids today. She got 10 mg of oxycodone last night, and a reduced dose this morning. Her pain feels controlled at this time. She reports similar orthostatic symptoms after her hysterectomy, she was unsure if she was anemic at that point. Her BP normally runs on the low side. She denies chest pain, shortness of breath, palpitations, nausea, vomiting diarrhea, fever, chills, dysuria, LE edema. Meds Home Medications and Allergies Home Medications Medication Instructions Recorded Confirmed Type acetaminophen 500 mg tablet 1,000 mg PO Q6H PRN Pain 11/01/23 11/07/23 History bimatoprost 0.01 % eye drops 1 drp EYE-LEFT DAILY 11/01/23 11/01/23 History ([facility]) diphenhydramine 25 1 tab PO BEDTIME 11/01/23 11/07/23 History mg-acetaminophen 500 mg tablet (Acetaminophen PM) gabapentin 100 mg capsule 100 mg PO BEDTIME 11/01/23 11/07/23 History docusate sodium 100 mg capsule 100 mg PO BID PRN constipation #60 11/09/23 Rx caps oxycodone 5 mg tablet 5 mg PO Q4-6H PRN Pain, Moderate 11/09/23 Rx (4-6) #60 tabs Allergies Allergy/AdvReac Type Severity Reaction Status Date / Time Penicillins Allergy Severe Rash Verified 11/07/23 11:17 tamsulosin Allergy Severe Rash Verified 11/07/23 11:17 Review of Systems Review of Systems Narrative: All other systems reviewed with the patient and are negative unless otherwise stated. Exam Vital Signs (past 8 hours): - 11/09/23 12:00 11/09/23 13:25 11/09/23 16:00 Temperature 98.0 F 97.9 F Pulse Rate 76 86 Respiratory Rate 16 16 Blood Pressure 93/36 L 105/45 L 107/46 L Pulse Oximetry 97 99 Oxygen Flow Rate 0 0 Oxygen Delivery Method Room Air Oxygen Flow Rate 0 Narrative Exam Narrative: General:? Patient is well developed and well nourished, in no distress at this time. HEENT:? Normocephalic, atraumatic, extraocular muscles intact, oral pharynx is clear and mucous membranes are moist. Neck: supple and symmetric, trachea is midline, no cervical adenopathy. Negative for JVD Chest:? Normal AP diameter and contour without kyphoscoliosis, no tachypnea, equal chest rise bilaterally. Lungs:? CTA b/l no wheezing rhonchi or rales. Cardio:?RRR, soft 2/6 systolic murmur Abdomen: S NT ND. Musculoskeletal:? Muscle strength and tone are equal within normal limits, no deformity. Extremities: No edema or joint effusions. No cyanosis or clubbing. Skin:? Pale,? Warm to touch,dry and intact without rashes, ulcerations or petechiae.? Neuro:? Alert and orientated x3,? sensation to touch intact in all extremities, no gross deficits noted of cranial nerves. Psych:? Patient has a well-kept appearance, appropriate affect, mental status attitude thought context and judgment are appropriate for age. Objective Labs 11/09/23 17:35 11/09/23 17:35 Labs: Laboratory Results - last 24 hr 11/09/23 05:33 Hgb 9.3 L Hct 27.0 L PFSH Medical History Anxiety Heart murmur Preglaucoma of left eye Sciatica Scoliosis Spondylolisthesis of lumbar region Spinal stenosis, lumbar region, with neurogenic claudication Surgical History Hx of breast surgery (2009) Hx of tubal ligation (09/1987) H/O: hysterectomy (2010) Social History household members: spouse Tobacco & Substance Use Smoking Status: Never smoker alcohol intake: current Assessment & Plan Assessment & Plan narrative: 1. Orthostatic hypotension - suspect combination of acute blood loss anemia, anesthesia, and reaction to opiates. Recommend reduction in oxycodone to 2.5 mg to 5 mg. Stopped 10 mg dose as this coincided with the worst of her symptoms. - Encourage increased intake - will recheck EKG, pre-op shows NSR. No reason for TTE at this time. - Patient reports improvement thus far today after IV fluids. - Ordered CBC, CMP, Mg to evaluate renal function, signs of possible infection. Showed mild leukocytosis likely reactive, but chemistries are unremarkable. - TSH ordered, pending 2. Acute blood loss anemia secondary to surgery - h/h improved today. Improved even further with CBC this afternoon. No further monitoring recommended. Code: Full, surrogate is patient's spouse DVT: per primary service Code: Full, surrogate is patient's spouse DVT: Lovenox daily I have utilized all available immediate resources to obtain, update, or review the patient's current medications. Additional history obtained via discussions with the orthopedics provider. These discussions contributed to the creation of the above assessment and plan. I have reviewed patient's presenting documentation, labs, and imaging personally. Medicine will follow up EKG, if no concerning findings and patient continues to improve will sign off.
[2023-11-09 17:45] LABS: Add Manual Diff / Slide Review NO; Basophils Absolute Auto 0 /uL (0-100); Basophils Percent Auto 0.2 % (0-2); Eosinophils Absolute Auto 0 /uL (0-450); Eosinophils Percent Auto 0.2 % (2-4); Hematocrit 29.4 % (36-46); Hemoglobin 9.8 g/dL (12.0-16.0); Lymphocytes Absolute Auto 1100 /uL (1100-4500); Mean Corpuscular HGB Conc 33.4 % (30-36); Mean Corpuscular Hemoglobin 30.9 PG (26-34); Mean Corpuscular Volume 92.4 fL (80-100); Monocytes Absolute Auto 600 /uL (0-900); Monocytes Percent Auto 5.7 % (3-14); Neutrophils Absolute Auto 9500 /uL (1500-7000); Neutrophils Percent Auto 83.9 % (50-75); Platelet Count 155 X10^3/uL (150-400); Red Blood Cell Count 3.18 X10^6/uL (4.0-5.2); Red Cell Distribution Width 13.5 % (11.6-14.8); White Blood Cell Count 11.3 X10^3/uL (4.5-11.0)
[2023-11-09 18:03] LABS: Alanine Aminotransferase 20 IU/L (<35); Albumin 3.5 g/dL (3.5-5.0); Albumin Globulin Ratio 1.3 (1.0-2.8); Alkaline Phosphatase 58 U/L (38-126); Aspartate Aminotransferase 36 IU/L (14-36); BUN Creatinine Ratio 12.7 (6-22); Bilirubin Total 0.5 mg/dL (0.2-1.3); Blood Urea Nitrogen 8 mg/dL (7-17); Calcium 8.8 mg/dL (8.4-10.2); Carbon Dioxide 26 mmol/L (22-32); Chloride 109 mmol/L (98-107); Estimated Glomerular Filt Rate > 60 mL/min (>60); Globulin 2.8 g/dL (1.7-4.1); Glucose 142 mg/dL (80-110); HEMOLYSIS < 15 (0-50); Magnesium 1.9 mg/dL (1.6-2.3); Potassium 3.5 mmol/L (3.4-5.1); Sodium 136 mmol/L (137-145); Total Protein 6.3 g/dL (6.3-8.2)
[2023-11-09 18:34] LABS: TSH w/ Reflex to FT4 1.16 uIU/mL (0.47-4.68)
[2023-11-09] MEDS: SENNOSIDES 8.6 MG TABLET 17.2 MG PO (20:13)
[2023-11-09] MEDS: GABAPENTIN 100 MG CAPSULE PO (20:13)
[2023-11-09] MEDS: BIMATOPROST 1 EACH EYE-LEFT (20:15)
[2023-11-10] MEDS: OXYCODONE IR 5 MG TABLET PO ×4 (02:13→13:40)
[2023-11-10] MEDS: ACETAMINOPHEN 325 MG TABLET 650 MG PO ×2 (02:14→10:03)
[2023-11-10 07:00] VITALS: BP 117/46
[2023-11-10 08:46] VITALS: BP 111/48; PULSE 80; RESP 16; TEMP 36.1; O2SAT 100
[2023-11-10] MEDS: DOCUSATE 100 MG CAPSULE PO (10:00)
--- NOTE | 2023-11-10 10:16 | PM.PN.1 ---
Subjective Subjective Interval history: Improved BP today, no complaints. Was able to ambulate with minimal dizziness today Exam Vital Signs (past 8 hours): - 11/10/23 07:00 11/10/23 08:46 Temperature 97.0 F L Pulse Rate 80 Respiratory Rate 16 Blood Pressure 117/46 L 111/48 L Pulse Oximetry 100 Oxygen Flow Rate 0 Oxygen Delivery Method Room Air Oxygen Flow Rate 0 Narrative Exam Narrative: Gen: no acute distress Objective Labs 11/09/23 17:35 11/09/23 17:35 Labs: Laboratory Results - last 24 hr 11/09/23 17:35 WBC 11.3 H RBC 3.18 L Hgb 9.8 L Hct 29.4 L MCV 92.4 MCH 30.9 MCHC 33.4 RDW 13.5 Plt Count 155 Neut % (Auto) 83.9 H Lymph % (Auto) 10.0 L Giles % (Auto) 5.7 Eos % (Auto) 0.2 L Baso % (Auto) 0.2 Neut # (Auto) 9500 H Lymph # (Auto) 1100 Giles # (Auto) 600 Eos # (Auto) 0 Baso # (Auto) 0 Sodium 136 L Potassium 3.5 Chloride 109 H Carbon Dioxide 26 BUN 8 Creatinine 0.63 Estimated GFR > 60 BUN/Creatinine Ratio 12.7 Glucose 142 H Calcium 8.8 Magnesium 1.9 Total Bilirubin 0.5 AST 36 ALT 20 Alkaline Phosphatase 58 Total Protein 6.3 Albumin 3.5 Globulin 2.8 Albumin/Globulin Ratio 1.3 TSH 1.16 PFSH Medical History Anxiety Heart murmur Preglaucoma of left eye Sciatica Scoliosis Spondylolisthesis of lumbar region Spinal stenosis, lumbar region, with neurogenic claudication Surgical History Hx of breast surgery (2009) Hx of tubal ligation (09/1987) H/O: hysterectomy (2010) Social History household members: spouse Smoking Status: Never smoker alcohol intake: current Assessment & Plan Assessment & Plan narrative: 1. Orthostatic hypotension - suspect combination of acute blood loss anemia, anesthesia, and reaction to opiates. Recommend reduction in oxycodone to 2.5 mg to 5 mg. Stopped 10 mg dose as this coincided with the worst of her symptoms. - no abnormal lab findings. - patient is improved today. - educated on precautions for orthostasis. Continue to reinforce with therapies. 2. Acute blood loss anemia secondary to surgery - h/h improved today. Can stop trending. Code: Full, surrogate is patient's spouse DVT: per primary service Medicine will sign off at this time. Do not hesitate to reach out for additional questiosn or repeat consultation. Quality VTE Deep Vein Thrombosis/Pulmonary Embolism Present on Admission: No
--- NOTE | 2023-11-10 10:20 | PT.IPTN ---
Current Diagnoses Acute posthemorrhagic anemia (11/07/23) Postprocedural hypotension (11/07/23) Spondylolisthesis, lumbar region (11/07/23) Spinal stenosis, lumbar region with neurogenic claudication (11/07/23) Arthrodesis status (11/07/23) Surgery Performed Operation Date: 11/07/23 12:15 Actual Procedures p L4-5, L5-S1 TLIF with posterior instrumentation- robot - Ancelmo Cabrera MD Physical Therapy Treatment Note M2 PT-IP Current Condition Start: 11/08/23 10:16 Freq: NEEDED Status: Active Protocol: Document 11/08/23 09:20 AB (Rec: 11/08/23 10:25 AB [id number]) Physical Therapy Current Condition Current Condition Evaluation Date 11/08/23 Treatment Diagnosis s/p L4-5, L5S1 TLIF; difficulty in walking Onset Date 11/07/23 M3 PT-IP Subjective Start: 11/08/23 10:16 Freq: NEEDED Status: Active Protocol: Document 11/10/23 11:04 TS (Rec: 11/10/23 11:11 TS [id number]) Subjective Physical Therapy Visit Type Type Treatment Note Visit Start Time 10:20 Visit Stop Time 10:46 Number of RUNNING INSTRUCTOR Visits 1 Physical Therapy Visit Comments Patient Comments Pt agreeable to PT. Therapy Pain Assessment Pain When Pain Assessed At Rest Pain Present Pain Present Pain Reported Location Lower Back Intensity 4 Scale Used Numeric (0 - 10) Description Aching,Tender,Throbbing Pain Management Techniques Distraction,Modification of Treatment,Re-positioning, Timing of Activity with Medications M4 PT-IP Mobility and Gait Start: 11/08/23 10:16 Freq: NEEDED Status: Active Protocol: Document 11/10/23 11:04 TS (Rec: 11/10/23 11:11 TS [id number]) PT-Bed Mobility Assessment Rolling Level of Assist Standby Assistance Supine to Sit Supine to Sit Standby Assistance Sit to Supine Sit to Supine Minimal Assistance Scooting Scooting to Edge of Bed Standby Assistance PT-Transfer Assessment Sit to and From Stand Sit to and from Stand Minimal Assistance,1 Person Assistance Equipment Transfer Assistive Device Gait Belt,Front Wheeled Walker Orthotic/Prosthetic Devices or Brace: No Comments Mobility Comments Bp in supine 102/37. Supine to sit SBA, pt dmeonstrates good awareness of her spinal precuations. STS from bed Reyna for balance, BP in standing 99/49. Pt requested to use commode, nursing in to assist. pt ambulated in room ~50'SBA, reported lightheadedness, BP in standing 69/33. Sit to supine Reyna for LE's into bed. Bp in supine 110/46. Pt was left in bed, RN notified. Gait Assessment Gait Gait Assistance Required: Standby Assistance Distance (Feet) 50 Assistive Devices Assistive Device Gait Belt,Front Wheeled Walker Gait Deviations General Gait Pattern Decreased Stride Length, Decreased Feet Clearance,Step- to Gait Factors Limiting Gait Function Factors Limiting Gait Function Decreased Activity Tolerance, Decreased Strength,Pain,Poor Balance PT-Balance Assessment Sitting Balance and Reactions Static Sitting Balance Ability Good Dynamic Sitting Balance Ability Fair Standing Balance and Reactions Static Standing Balance Ability Good Dynamic Standing Balance Ability Good M5 PT-IP Objective Assessments Start: 11/08/23 10:16 Freq: NEEDED Status: Active Protocol: Document 11/08/23 09:20 AB (Rec: 11/08/23 10:25 AB [id number]) Orientation Orientation/Cognition Level of Alertness Alert Orientation Name,Place,Situation Language Function Ability No Deficits Noted Safety Awareness Decreased Safety Awareness Memory Description No Deficits Noted Gross Range of Motion Lower Extremity ROM Assessment Within Functional Limits Strength Lower Extremity Strength Hip 4-/5 Knee 4-/5 Sensation Assessment Sensation Gross Sensation WNL Muscle Tone Muscle Tone WNL Yes M6 PT-IP Treatment Start: 11/08/23 10:16 Freq: NEEDED Status: Active Protocol: Document 11/10/23 11:04 TS (Rec: 11/10/23 11:11 [id number]) Physical Therapy Treatment Education Education Provided Precautions,Safety M7 PT-IP Assessment and Plan Start: 11/08/23 10:16 Freq: NEEDED Status: Active Protocol: Document 11/10/23 11:04 TS (Rec: 11/10/23 11:11 TS [id number]) PT Summary Assessment and Plan Potential Rehabilitation Potential Fair Summary Impairments Pain,ROM,Strength,Balance, Coordination,Sensation,Tone, Cognition,Bed Mobility, Transfers,Gait,Activity Tolerance Progress Towards Goals Progressing Toward Goals,Slow Progress due to Medical Issues Assessment Summary Kaye is making progress with her mobility but is limited by ongoing hypotension and lightheadedness. She performed bed mobility mostyl SBA with some assistance for LE's into bed. STS form bed she rquired Reyna for balance due to difficulty transitioning hands to FWW. She progressed her gait to ~50'SBA with FWW. She did not perform stairs due to low BP(see vitals above). PT is recommending home with 24/7 assist. Goals Bed Mobility Goal Independent Transfer Goal Independent,Front Wheeled Walker Gait Goal Independent,Front Wheel Walker Gait Distance 300 Other Goals up/down 4 steps L rail ascending SBA Days to Meet Goals 10 Frequency of Treatment Frequency Of Treatment Twice a Day Treatment Plan Physical Therapy Treatment Plan Bed Mobility Training,Transfer Training,Gait Training, Therapeutic Exercise,Balance Retraining,Post Op Education, Discharge Planning,Hot or Cold Pack,Neuromuscular Re-ed, Coordination Retraining,Manual Therapy Precautions Lumbar Precautions Log Roll,No Twisting,Limit Bending,Lifting Restriction of 10 lbs,Gait Belt above Incisional Area Recommendations To Nursing Amount of Assist Needed Standby Assistance Discharge Recommendations PT Discharge Recommendations Home with 24/7 Assist Available,Home Health Transportation Needs at Discharge Private Vehicle
--- NOTE | 2023-11-10 10:31 | PM.PNPO.1 ---
Subjective Subjective Date Patient Seen: 11/10/23 Time Patient Seen: 10:31 Interval history: Pain [id number]. Denies fever chills. No nausea or vomiting. Patient states she is feeling much better compared to yesterday. Exam Vital Signs (past 8 hours): - 11/10/23 07:00 11/10/23 08:46 Temperature 97.0 F L Pulse Rate 80 Respiratory Rate 16 Blood Pressure 117/46 L 111/48 L Pulse Oximetry 100 Oxygen Flow Rate 0 Oxygen Delivery Method Room Air Oxygen Flow Rate 0 Narrative Exam Narrative: 62-year-old female sitting at bedside to starting physical therapy. Motor functions intact bilateral lower extremities. Const General: cooperative and comfortable Nutritional Appearance: average body habitus Orientation: alert Resp Effort & Inspection: normal respiratory effort and able to speak in complete sentences Objective Labs 11/09/23 17:35 11/09/23 17:35 Labs: Laboratory Results - last 24 hr 11/09/23 17:35 WBC 11.3 H RBC 3.18 L Hgb 9.8 L Hct 29.4 L MCV 92.4 MCH 30.9 MCHC 33.4 RDW 13.5 Plt Count 155 Neut % (Auto) 83.9 H Lymph % (Auto) 10.0 L [place] % (Auto) 5.7 Eos % (Auto) 0.2 L Baso % (Auto) 0.2 Neut # (Auto) 9500 H Lymph # (Auto) 1100 [place] # (Auto) 600 Eos # (Auto) 0 Baso # (Auto) 0 Sodium 136 L Potassium 3.5 Chloride 109 H Carbon Dioxide 26 BUN 8 Creatinine 0.63 Estimated GFR > 60 BUN/Creatinine Ratio 12.7 Glucose 142 H Calcium 8.8 Magnesium 1.9 Total Bilirubin 0.5 AST 36 ALT 20 Alkaline Phosphatase 58 Total Protein 6.3 Albumin 3.5 Globulin 2.8 Albumin/Globulin Ratio 1.3 TSH 1.16 PFSH Medical History Anxiety Heart murmur Preglaucoma of left eye Sciatica Scoliosis Spondylolisthesis of lumbar region Spinal stenosis, lumbar region, with neurogenic claudication Surgical History Hx of breast surgery (2009) Hx of tubal ligation (09/1987) H/O: hysterectomy (2010) Social History household members: spouse Smoking Status: Never smoker alcohol intake: current Assessment & Plan Post-op Postoperative Procedures: Procedures Operation Date: 11/07/23 12:15 Actual Procedure Side Surgeon p L4-5, L5-S1 TLIF with posterior instrumentation- robot Ancelmo Cabrera MD Postoperative day: 3 Postoperative status narrative: Stable status post L4-L5, L5-S1 fusion, orthostatic hypotension suspected combination of acute blood loss anemia, anesthesia and reaction to opiates Postoperative plan narrative: Continue to work with physical therapy. Limit bending, twisting, lifting H&H is stable Limit opiate use Disposition likely home today or tomorrow Quality VTE Deep Vein Thrombosis/Pulmonary Embolism Present on Admission: No
[2023-11-10 12:26] VITALS: BP 112/43; PULSE 83; RESP 16; TEMP 36.4; O2SAT 96
--- NOTE | 2023-11-10 12:48 | CM.DPNOTE ---
DCP Cont Reviewed chart. Patient discussed in multidisciplinary rounds. Patient is POD3 status post TLIF Ortho KRISTEN Robledo anticipates discharge home later today or tomorrow. It appears from chart review that Orthostatic hypotension, Acute blood loss anemia secondary to surgery and pain management have been post operative complications, delaying discharge home. Discharge home w/family anticipated w/close outpatient follow up. CM team following closely in case any discharge needs or concerns arise. NILSON
--- NOTE | 2023-11-10 13:03 | P.DS_ITS ---
History of Present Illness History of Present Illness Date Patient Seen: 11/10/23 Time Patient Seen: 13:03 Chief complaint: Back pain Narrative: Patient is seen today again at 1:00 p.m.. Patient said she was able to ambulate with physical therapy. She was a little dizzy but not lightheaded no nausea or vomiting. No shortness of breath or chest pain. Patient states that she does have low pressure pressure at home. Discharge Providers Provider Date of admission: 11/07/23 10:41 Discharge Date: 11/10/23 Consults: 11/07/23 19:23 Consult to Occupational Therapy Evaluate & Treat Comment: Physician Instructions: Evaluate and treat Consult to Physical Therapy Evaluate & Treat Comment: Physician Instructions: Evaluate and Treat 11/09/23 17:00 Consult to Hospitalist Service Routine Comment: Consulting Provider: [facility] Reason for consultation: Hypotension. Has provider been notified: Yes Discharge provider: Regino Robledo PA-C Summary Hospital Course Discharge Diagnosis: 1. L4-5, L5-S1 foramen stenosis 2. L5-S1 anterolisthesis 3. Lumbar central stenosis Hospital Course: 1. L4-5, L5-S1 Postero-lateral and posterior interbody fusion 2. L4-5, L5-S1 interbody cage placement. 3. L4-5, L5-S1 decompressive laminectomy with bilateral facetecomies 4. L4-5, L5-S1 Posterior segmental instrumentation 5. [place] of bone marrow from iliac crest 6. Utilization of microsurgical technique and operating microscope 7. Utilization of robotic assisted navigation Same procedure as scheduled: Yes Indications: Patient has been having chronic back pain and worsening lumbar radiculopathy, right worse than left that started after a injury while she was working. Patient's MRI shows significant foraminal stenosis with anterolisthesis at L4-5 L5-S1 correlating with her symptoms. Patient failed multiple conservative management with worsening pain weakness and numbness in her lower extremity. Patient has been having difficulty performing activity of daily living. After discussing risks benefits of treatment options, patient elected proceed with surgery. Surgeon: Ancelmo Cabrera Keyboard Operator: La Gomez Click Yes if Unassisted: No Anesthesia Type: General Operative Notes Closure Type: primary Prosthetic devices, grafts, tissues, transplants, or devices: Globus CREO MIS screws, Rise cages Applied: catheter Estimated Blood Loss (mL): 350 Blood products transfused: none Patient admitted to the hospital for the above-mentioned procedure. Patient consented to the same. Patient underwent L4-L5, L5-S1 fusion November 07, 2023. Patient had been doing well and was ready for discharge yesterday but had some orthostatic hypotension. The hospitalist was asked to consult on patient. Patient has stabilized and is ready for discharge home. Multimodal pain management, keep dressing clean and dry. Limit bending, twisting, lifting. Discharge home today after physical therapy if safe for home environment. Status at Discharge Cognitive/behavioral status at discharge: oriented Functional status at discharge: uses cane/walker Overall status at discharge: patient is progressing back to baseline Exam Vital Signs (past 8 hours): - 11/10/23 07:00 11/10/23 08:46 11/10/23 12:26 Temperature 97.0 F L 97.5 F L Pulse Rate 80 83 Respiratory Rate 16 16 Blood Pressure 117/46 L 111/48 L 112/43 L Pulse Oximetry 100 96 Oxygen Flow Rate 0 0 Oxygen Delivery Method Room Air Oxygen Flow Rate 0 Narrative Exam Narrative: See progress note Objective Labs 11/09/23 17:35 11/09/23 17:35 Labs: Laboratory Results - last 24 hr 11/09/23 17:35 WBC 11.3 H RBC 3.18 L Hgb 9.8 L Hct 29.4 L MCV 92.4 MCH 30.9 MCHC 33.4 RDW 13.5 Plt Count 155 Neut % (Auto) 83.9 H Lymph % (Auto) 10.0 L [place] % (Auto) 5.7 Eos % (Auto) 0.2 L Baso % (Auto) 0.2 Neut # (Auto) 9500 H Lymph # (Auto) 1100 [place] # (Auto) 600 Eos # (Auto) 0 Baso # (Auto) 0 Sodium 136 L Potassium 3.5 Chloride 109 H Carbon Dioxide 26 BUN 8 Creatinine 0.63 Estimated GFR > 60 BUN/Creatinine Ratio 12.7 Glucose 142 H Calcium 8.8 Magnesium 1.9 Total Bilirubin 0.5 AST 36 ALT 20 Alkaline Phosphatase 58 Total Protein 6.3 Albumin 3.5 Globulin 2.8 Albumin/Globulin Ratio 1.3 TSH 1.16 PFSH Medical History Anxiety Heart murmur Preglaucoma of left eye Sciatica Scoliosis Spondylolisthesis of lumbar region Spinal stenosis, lumbar region, with neurogenic claudication Surgical History Hx of breast surgery (2009) Hx of tubal ligation (09/1987) H/O: hysterectomy (2010) Social History household members: spouse Smoking Status: Never smoker alcohol intake: current Discharge Assessment & Plan Assessment and Plan Assessment: L4-5, L5-S1 foramen stenosis, L5-S1 anterolisthesis, Lumbar central stenosis; s/p L4-5, L5-S1 fusion Postop anemia d/t expected surgical blood loss Postop hypotension d/t expected surgical blood loss Plan of Treatment: Discharge home after AM PT if PT agrees. Multimodal pain control, f/u in office in 2 weeks as scheduled. Discharge Plan Discharge Plan Patient Disposition: Home Discharge orders & Medications Prescriptions: New docusate sodium 100 mg Capsule 100 mg PO BID PRN (Reason: constipation) Qty: 60 1RF oxycodone 5 mg Tablet 5 mg PO Q4-6H PRN (Reason: Pain, Moderate (4-6)) Qty: 60 0RF Continued acetaminophen 500 mg Tablet 1,000 mg PO Q6H PRN (Reason: Pain) gabapentin 100 mg Capsule 100 mg PO BEDTIME diphenhydramine-acetaminophen [Acetaminophen PM] 25-500 mg Tablet 1 tab PO BEDTIME [place] 0.01 % Drops 1 drp EYE-LEFT DAILY Follow up/Referrals: Ancelmo Cabrera MD [Physician] - 11/22/23 11:00 am (Follow up w/ Toan Del Toro PA-C, at [facility] office in [facility].) Diet/Activity/Treatments Diet: Diet as Tolerated Activity: No deep bending or twisting at the waist. No lifting more than 10 pounds. Cold/Heat Therapy: Heating pad to low back as needed for pain. Skin/Wound/Dressing Care Report to your healthcare provider any signs of infection, such as:: chills, fever, night sweats, unusual drainage and unusual redness Dressing: May shower. Keep dressing as dry as possible. If dressing becomes wet or dirty, may remove and replace with clean, dry gauze. No bathing or otherwise soaking incisions. Do not apply any creams, lotions, or ointments to incisions. Visit Report/Discharge Packet Instructions: DI for Prescription Opioid Use, DI for Transforaminal Lumbar Interbody Fusion Stand Alone Forms: Patient Portal/API, Stroke Signs & Symptoms, Surgery Discharge Quality VTE Deep Vein Thrombosis/Pulmonary Embolism Present on Admission: No
--- NOTE | 2023-11-10 13:10 | PT.IPTN ---
Current Diagnoses Acute posthemorrhagic anemia (11/07/23) Postprocedural hypotension (11/07/23) Spondylolisthesis, lumbar region (11/07/23) Spinal stenosis, lumbar region with neurogenic claudication (11/07/23) Arthrodesis status (11/07/23) Surgery Performed Operation Date: 11/07/23 12:15 Actual Procedures p L4-5, L5-S1 TLIF with posterior instrumentation- robot - Ancelmo Cabrera MD Physical Therapy Treatment Note M2 PT-IP Current Condition Start: 11/08/23 10:16 Freq: NEEDED Status: Active Protocol: Document 11/08/23 09:20 AB (Rec: 11/08/23 10:25 AB [id number]) Physical Therapy Current Condition Current Condition Evaluation Date 11/08/23 Treatment Diagnosis s/p L4-5, L5S1 TLIF; difficulty in walking Onset Date 11/07/23 M3 PT-IP Subjective Start: 11/08/23 10:16 Freq: NEEDED Status: Active Protocol: Document 11/10/23 14:03 TS (Rec: 11/10/23 14:17 TS [id number]) Subjective Physical Therapy Visit Type Type Treatment Note Visit Start Time 13:10 Visit Stop Time 13:25 Number of CONSTRUCTION ENGINEERING MANAGER Visits 2 Physical Therapy Visit Comments Patient Comments Pt found resting in bed, is agreeable to PT. Therapy Pain Assessment Pain When Pain Assessed At Rest Pain Present Pain Present Pain Reported M4 PT-IP Mobility and Gait Start: 11/08/23 10:16 Freq: NEEDED Status: Active Protocol: Document 11/10/23 14:03 TS (Rec: 11/10/23 14:17 TS [id number]) PT-Bed Mobility Assessment Rolling Level of Assist Standby Assistance Supine to Sit Supine to Sit Standby Assistance Sit to Supine Sit to Supine Minimal Assistance Scooting Scooting to Edge of Bed Standby Assistance PT-Transfer Assessment Sit to and From Stand Sit to and from Stand Minimal Assistance,1 Person Assistance Equipment Transfer Assistive Device Gait Belt,Front Wheeled Walker Orthotic/Prosthetic Devices or Brace: No Comments Mobility Comments BP in supine 107/55. Supine to sit SBA with BUE support. Pt requested to use toilet. STS from bed Reyna with FWW. pt's knees slightly buckle coming into standing. Pt used JENNIFER thomson to assist. She ambulated in room ~30'SBA with FWW. She performed steps with spouse CGA with single rail and FOLDER MACHINE ADJUSTER. Sit to supine into bed, pt required Reyna for LE's into bed. Pt was left in bed, all needs met. Gait Assessment Gait Gait Assistance Required: Standby Assistance Distance (Feet) 30 Assistive Devices Assistive Device Gait Belt,Front Wheeled Walker Orthotic/Prosthetic Devices or Brace: No Gait Deviations General Gait Pattern Decreased Stride Length, Decreased Feet Clearance,Step- to Gait Factors Limiting Gait Function Factors Limiting Gait Function Decreased Activity Tolerance, Decreased Strength,Pain,Poor Balance Stair Climbing Assessment Evaluation Level of Assist On Stairs Contact Guard Assistance Devices Stair Climbing Assistive Devices Right Railing Technique/Endurance Stair Climbing Direction Ascend and Descend Stair Climbing Technique Step to Step Number of Steps Climbed 4 Comments Stair Climbing Comments See mobility comments PT-Balance Assessment Sitting Balance and Reactions Static Sitting Balance Ability Good Dynamic Sitting Balance Ability Fair Standing Balance and Reactions Static Standing Balance Ability Good Dynamic Standing Balance Ability Good Device Used FWW M5 PT-IP Objective Assessments Start: 11/08/23 10:16 Freq: NEEDED Status: Active Protocol: Document 11/08/23 09:20 AB (Rec: 11/08/23 10:25 AB [id number]) Orientation Orientation/Cognition Level of Alertness Alert Orientation Name,Place,Situation Language Function Ability No Deficits Noted Safety Awareness Decreased Safety Awareness Memory Description No Deficits Noted Gross Range of Motion Lower Extremity ROM Assessment Within Functional Limits Strength Lower Extremity Strength Hip 4-/5 Knee 4-/5 Sensation Assessment Sensation Gross Sensation WNL Muscle Tone Muscle Tone WNL Yes M6 PT-IP Treatment Start: 11/08/23 10:16 Freq: NEEDED Status: Active Protocol: Document 11/10/23 14:03 TS (Rec: 11/10/23 14:17 [id number]) Physical Therapy Treatment Education Education Provided Precautions,Safety M7 PT-IP Assessment and Plan Start: 11/08/23 10:16 Freq: NEEDED Status: Active Protocol: Document 11/10/23 14:03 TS (Rec: 11/10/23 14:17 [id number]) PT Summary Assessment and Plan Potential Rehabilitation Potential Fair Summary Impairments Pain,ROM,Strength,Balance, Coordination,Sensation,Tone, Cognition,Bed Mobility, Transfers,Gait,Activity Tolerance Progress Towards Goals Progressing Toward Goals Assessment Summary Kaye is making good progress with her mobility. She is SBA for all bed mobility with the exception of getting into bed required Reyna for LE's. She did not c/o lightheadedness with up with PT this afternoon . She progressed to stairs x4 with assist from spouse. PT is recommending pt return home with 24/7 assist. Goals Bed Mobility Goal Independent Transfer Goal Independent,Front Wheeled Walker Gait Goal Independent,Front Wheel Walker Gait Distance 300 Other Goals up/down 4 steps L rail ascending SBA Days to Meet Goals 10 Frequency of Treatment Frequency Of Treatment Twice a Day Treatment Plan Physical Therapy Treatment Plan Bed Mobility Training,Transfer Training,Gait Training, Therapeutic Exercise,Balance Retraining,Post Op Education, Discharge Planning,Hot or Cold Pack,Neuromuscular Re-ed, Coordination Retraining,Manual Therapy Precautions Lumbar Precautions Log Roll,No Twisting,Limit Bending,Lifting Restriction of 10 lbs,Gait Belt above Incisional Area Recommendations To Nursing Amount of Assist Needed Standby Assistance Discharge Recommendations PT Discharge Recommendations Home with 24/7 Assist Available Transportation Needs at Discharge Private Vehicle
--- NOTE | 2023-11-10 14:59 | PC.NURSE ---
Patient is A&OX4, BP still low, but with some improvement. She is eager to discharge home today. Ortho PA returned midday to evaluate patient after she works with PT and reported to still have orthostatic hypotension. She reports dizziness has improved and that overall she feels much better today. She is cleared to discharge home with her after doing steps with PT this afternoon. She verbalizes understanding of activity limitations, site care, medications, s/sx of infection as well as post op appointment with MD Cabrera. She is assisted to dress and transported via w/ch to private vehicle with all of her belongings at 1400 this afternoon.
== END 2023-11-10 14:00 | disposition home or self-care (01) | DRG 304 ==
PROVIDERS: Internal Medicine; Physician Assistant; Admitting Provider Orthopaedic Surgery Orthopaedic Surgery of the Spine; Referring Provider Orthopaedic Surgery Orthopaedic Surgery of the Spine; Visit Provider Orthopaedic Surgery Orthopaedic Surgery of the Spine
PROC: 0SG00AJ Fusion of Lumbar Vertebral Joint with Interbody Fusion Device, Posterior Approach, Anterior Column, Open Approach (ICD-10-PCS; principal; 2023-11-07 12:15)
DX: M48.061 Spinal stenosis, lumbar region without neurogenic claudication (principal); M43.17 Spondylolisthesis, lumbosacral region; M43.16 Spondylolisthesis, lumbar region; M54.16 Radiculopathy, lumbar region; M48.07 Spinal stenosis, lumbosacral region; I95.81 Postprocedural hypotension; D62 Acute posthemorrhagic anemia; T40.605A Adverse effect of unspecified narcotics, initial encounter; H40.002 Preglaucoma, unspecified, left eye; W11.XXXA Fall on and from ladder, initial encounter; Y99.0 Civilian activity done for income or pay
CPT/HCPCS: 36415; 72100; 76000; 80053; 83735; 84443; 85014; 85018; 85025; 93005; 93010; 97116; 97163; 97165; 97530; 97535; C1713; C9290; J0136; J0171; J0330; J0690; J1170; J2250; J2405; J2704; J3010; J3410; P9041